=== PATIENT | female | born 1945 | race Caucasian/White ===

== ENCOUNTER 2023-04-12 17:09 | Inpatient (IN) | payer MEDICARE, MEDICAID ==
[~2023-04-12] VITALS: Ht 152.4 cm; Wt 83.7 kg
[~2023-04-12 17:09] MED LIST: AML5T GT; AML5T PO; ARFO15NE2 IN; DIGO0.2570 PO; FLUT250M2 INH; FURO40TA4 PO; GABA-1250 PO; IBUP-1456 PO; LISI20TA56 PO; LOS50T PO; METO-6 PO; NITR0.4S29 SL; OMEP20CA74 PO; POTA1TAB61 PO; SIMV-270 PO
[2023-04-12 17:42] LABS: Basophils # (auto) 0 10 ^3/uL (0-0.2); Basophils % (auto) 0.6 % (0.0-2.0); Eosinophils # (auto) 0.1 10 ^3/uL (0-0.8); Eosinophils % (auto) 2.3 % (0.0-7.0); Hematocrit 45.3 % (36.0-46.0); Hemoglobin 14.9 g/dL (12.2-16.2); Lymphocytes # (auto) 1.6 10 ^3/uL (0.4-5.4); Lymphocytes % (auto) 24.5 % (10.0-50.0); Mean Corpuscular Hemoglobin 30.3 pg (28.0-32.0); Mean Corpuscular Hgb Conc. 32.9 g/dL (32.0-36.0); Mean Corpuscular Volume 92.4 fL (80.0-100.0); Monocytes # (auto) 0.7 10 ^3/uL (0-1.3); Monocytes % (auto) 10.3 % (0.0-12.0); Neutrophils # (auto) 4.1 10 ^3/uL (1.6-8.6); Neutrophils % (auto) 62.3 % (37.0-80.0); Nucleated Red Blood Cells % 0.1 %; Red Cell Distribution Width 14.5 % (11.8-14.3); White Blood Cell 6.6 10^3/uL (4.4-10.8)
[2023-04-12 17:45] LABS: Chloride 105 mmol/L (98-107); Potassium 4.1 mmol/L (3.5-5.1); Sodium 143 mmol/L (136-145)
[2023-04-12 17:46] LABS: Anion Gap 5 (5-15); Calcium 9.9 mg/dL (8.5-10.1); Carbon Dioxide 33 mmol/L (20-30)
[2023-04-12 17:51] LABS: BUN/Creatinine Ratio 14.6 (10.0-20.0); Blood Urea Nitrogen 14 mg/dL (9-23); Glucose 91 mg/dL (74-106)
[2023-04-12] MEDS ORDERED: ONDANSETRON HCL 4 MG/2 ML VIAL IV ONE (18:15)
[2023-04-12] MEDS ORDERED: NITROGLYCERIN 0.4 MG SL TAB SL ONE (18:15)
[2023-04-12] MEDS ORDERED: MORPHINE SULFATE 4 MG/ML SYR/VIAL IV PRN (19:15)
[2023-04-12] MEDS ORDERED: NITROGLYCERIN 0.4 MG SL TAB SL PRN (19:15)
[2023-04-12] MEDS ORDERED: ONDANSETRON HCL 4 MG/2 ML VIAL IV PRN (19:15)
[2023-04-12] MEDS ORDERED: ACETAMINOPHEN 325 MG TAB PO PRN (19:15)
[2023-04-12] MEDS ORDERED: DEXTROSE (50%) 50ML SYRG IV PRN (19:45)
[2023-04-12 21:00] VITALS: PULSE 77
[2023-04-12] MEDS: METOPROLOL SUCCINATE XL 50 MG TAB PO SCH (21:17)
[2023-04-12] MEDS: ATORVASTATIN 20 MG TAB PO SCH (21:18)
[2023-04-12 21:30] LABS: Prothrombin Time 10.5 sec (9.3-11.8)
[2023-04-12] MEDS: ACCU-CHEK COMFORT CURVE STRIP VI SCH (21:47)
[2023-04-12] MEDS: InsuLIN REG 1unit/0.01ml Soln (100units/ml) SC SCH (21:47)
[2023-04-12] MEDS ORDERED: LOSARTAN POTASSIUM 50 MG TAB PO SCH (22:00)
[2023-04-12 23:54] LABS: Urine Epithelial Cast None Seen /hpf (<5)
[2023-04-13] VITALS (11 sets, daily range): BP systolic 113–156; BP diastolic 53–99; PULSE 60–64; RESP 11–20; TEMP 97.5–98.3; O2SAT 94–98
[2023-04-13 00:15] LABS: Urine Bacteria FEW /hpf (None Seen); Urine Blood Negative /uL (Negative); Urine Clarity HAZY (Clear); Urine Color Yellow (Yellow); Urine Protein, UAD Negative (Negative); Urine Specific Gravity 1.016 (1.001-1.035); Urine Urobilinogen Normal (Negative); Urine WBC 1 /hpf (0 - 5)
[2023-04-13] MEDS: FUROSEMIDE 40 MG TAB PO SCH ×2 (06:20→18:00)
[2023-04-13] MEDS: ACCU-CHEK COMFORT CURVE STRIP VI SCH ×4 (06:20→22:37)
[2023-04-13] MEDS: InsuLIN REG 1unit/0.01ml Soln (100units/ml) SC SCH ×4 (06:20→22:44)
[2023-04-13] MEDS ORDERED: EZET-10 PO (07:56)
[2023-04-13] MEDS ORDERED: MEMA28CA15 PO (07:56)
[2023-04-13] MEDS ORDERED: DONETAB6 PO (07:56)
[2023-04-13] MEDS ORDERED: RIVA1CAP PO (07:56)
[2023-04-13] MEDS: LISINOPRIL 20 MG TAB PO SCH (10:00)
[2023-04-13] MEDS: amLODIPine BESYLATE 5 MG TAB PO SCH (10:00)
[2023-04-13] MEDS ORDERED: MEMANTINE HCL 5 MG TAB PO ONE (10:15)
[2023-04-13] MEDS ORDERED: IBUPROFEN 800 MG TAB PO PRN ×2 (10:15→10:30)
[2023-04-13] MEDS: PANTOPRAZOLE 40 MG TAB PO SCH (11:10)
[2023-04-13] MEDS: DOCUSATE SOD 100 MG CAP PO SCH (11:11)
[2023-04-13] MEDS: GABAPENTIN 300 MG CAP PO SCH ×2 (11:18→22:36)
[2023-04-13] MEDS: METOPROLOL SUCCINATE XL 50 MG TAB PO SCH ×2 (11:19→22:35)
[2023-04-13] MEDS: DIGOXIN 0.25 MG TAB PO SCH (11:20)
[2023-04-13] MEDS ORDERED: VERAPAMIL 2.5MG/ML INJ 2ML VIAL IV ONE (18:48)
[2023-04-13] MEDS ORDERED: fentaNYL CITRATE 100 MCG/2 ML VL ONE (18:48)
[2023-04-13] MEDS ORDERED: HEPARIN SODIUM (PORCINE) 5000 UNITS/ML 1ML VIAL ONE (18:48)
[2023-04-13] MEDS ORDERED: ANGIOMAX 250 MG VIAL IV ONE (18:48)
[2023-04-13] MEDS ORDERED: LIDOCAINE 2%HCL (LOCAL ANESTH.) INJ 20ML MDV ONE (18:49)
[2023-04-13] MEDS ORDERED: MIDAZOLAM HCL 2MG/2ML 2ml VIAL (1mg/ml) ONE (18:49)
[2023-04-13] MEDS ORDERED: SODIUM CHL 0.9% 0 ML ONE (18:49)
[2023-04-13] MEDS ORDERED: IOHEXOL 350 MG/ML 100ML IJ ONE (18:49)
[2023-04-13] MEDS ORDERED: DONEPEZIL HYDROCHLORIDE 5 MG TAB PO SCH (22:00)
[2023-04-13] MEDS: ATORVASTATIN 20 MG TAB PO SCH (22:32)
[2023-04-13] MEDS: MEMANTINE HCL 5 MG TAB PO SCH (22:32)
[2023-04-14 05:00] VITALS: BP 149/77; PULSE 59; RESP 18; TEMP 97.8; O2SAT 93
[2023-04-14 05:19] LABS: Basophils # (auto) 0 10 ^3/uL (0-0.2); Basophils % (auto) 0.6 % (0.0-2.0); Eosinophils # (auto) 0.2 10 ^3/uL (0-0.8); Eosinophils % (auto) 2.5 % (0.0-7.0); Hematocrit 42.8 % (36.0-46.0); Hemoglobin 14.3 g/dL (12.2-16.2); Lymphocytes # (auto) 1.5 10 ^3/uL (0.4-5.4); Mean Corpuscular Hemoglobin 30.8 pg (28.0-32.0); Mean Corpuscular Hgb Conc. 33.4 g/dL (32.0-36.0); Monocytes # (auto) 0.7 10 ^3/uL (0-1.3); Monocytes % (auto) 10.8 % (0.0-12.0); Neutrophils % (auto) 63.1 % (37.0-80.0); Red Blood Cells 4.65 10^6/uL (4.0-5.20); Red Cell Distribution Width 14.3 % (11.8-14.3); White Blood Cell 6.3 10^3/uL (4.4-10.8)
[2023-04-14 05:27] LABS: Alanine Aminotransferase 15 U/L (7-40); Albumin 4.1 g/dL (3.2-4.8); Alkaline Phosphatase 69 U/L (46-116); Anion Gap 8 (5-15); Aspartate Aminotransferase 21 U/L (13-40); BUN/Creatinine Ratio 17.7 (10.0-20.0); Blood Urea Nitrogen 17 mg/dL (9-23); Calcium 9.4 mg/dL (8.7-10.4); Carbon Dioxide 27 mmol/L (20-30); Chloride 104 mmol/L (98-107); Glucose 104 mg/dL (74-106); Sodium 139 mmol/L (136-145)
[2023-04-14 05:28] LABS: Bilirubin, Total 0.5 mg/dL (0.2-1.0); Total Protein 6.4 g/dL (5.7-8.2)
[2023-04-14] MEDS: FUROSEMIDE 40 MG TAB PO SCH (05:40)
[2023-04-14] MEDS: GABAPENTIN 300 MG CAP PO SCH (05:40)
[2023-04-14] MEDS: InsuLIN REG 1unit/0.01ml Soln (100units/ml) SC SCH ×2 (05:50→11:30)
[2023-04-14] MEDS: ACCU-CHEK COMFORT CURVE STRIP VI SCH ×2 (05:50→11:30)
[2023-04-14 08:00] VITALS: BP 106/59; PULSE 60; RESP 16; TEMP 97.6; O2SAT 97
[2023-04-14] MEDS: DOCUSATE SOD 100 MG CAP PO SCH (08:32)
[2023-04-14] MEDS: PANTOPRAZOLE 40 MG TAB PO SCH (08:32)
[2023-04-14] MEDS: MEMANTINE HCL 5 MG TAB PO SCH (08:33)
[2023-04-14] MEDS: amLODIPine BESYLATE 5 MG TAB PO SCH (08:33)
[2023-04-14] MEDS: DIGOXIN 0.25 MG TAB PO SCH (08:33)
[2023-04-14] MEDS: METOPROLOL SUCCINATE XL 50 MG TAB PO SCH (08:34)
[2023-04-14] MEDS: LISINOPRIL 20 MG TAB PO SCH (08:34)
[2023-04-14 11:39] VITALS: BP 95/57; PULSE 60; TEMP 97.2
== END 2023-04-14 12:30 | disposition home or self-care (01) | DRG 287 ==
LOC: EDBD 17:09 → ER 17:09 → TELE 19:35 → TELE-CENTR 23:47
PROVIDERS: ADMIT Nurse Practitioner Family; ATTEND Internal Medicine
PROC: 4A023N7 Measurement of Cardiac Sampling and Pressure, Left Heart, Percutaneous Approach (ICD-10-PCS; principal; 2023-04-13)
PROC: B2111ZZ Fluoroscopy of Multiple Coronary Arteries using Low Osmolar Contrast (ICD-10-PCS; 2023-04-13)
PROC: B2151ZZ Fluoroscopy of Left Heart using Low Osmolar Contrast (ICD-10-PCS; 2023-04-13)
PROC: 4A033BC Measurement of Arterial Pressure, Coronary, Percutaneous Approach (ICD-10-PCS; 2023-04-13)
DX: I25.110 Atherosclerotic heart disease of native coronary artery with unstable angina pectoris (principal); J44.1 Chronic obstructive pulmonary disease with (acute) exacerbation; E11.65 Type 2 diabetes mellitus with hyperglycemia; E78.5 Hyperlipidemia, unspecified; F03.90 Unspecified dementia, unspecified severity, without behavioral disturbance, psychotic disturbance, mood disturbance, and anxiety; I10 Essential (primary) hypertension; E66.9 Obesity, unspecified; I25.2 Old myocardial infarction; Z88.5 Allergy status to narcotic agent; Z88.8 Allergy status to other drugs, medicaments and biological substances; Z86.73 Personal history of transient ischemic attack (TIA), and cerebral infarction without residual deficits; Z88.6 Allergy status to analgesic agent; Z95.0 Presence of cardiac pacemaker; Z82.49 Family history of ischemic heart disease and other diseases of the circulatory system; Z83.3 Family history of diabetes mellitus; Z68.36 Body mass index [BMI] 36.0-36.9, adult
CPT/HCPCS: 36415; 71045; 80048; 80053; 80162; 81001; 82607; 82962; 83735; 84443; 84484; 85025; 85610; 87081; 93005; 93306; 93458; 93571; 97163; 99152; G0378; J2250; J2405

== ENCOUNTER 2023-04-19 12:34 | Emergency (ER) | payer MEDICARE, MEDICAID ==
[~2023-04-19] VITALS: Ht 162.6 cm; Wt 68.0 kg
[~2023-04-19 12:34] MED LIST changes: +DONETAB6 PO; +EZET-10 PO; +MEMA28CA15 PO; +RIVA1CAP PO
[2023-04-19 13:58] LABS: Basophils # (auto) 0.1 10 ^3/uL (0-0.2); Basophils % (auto) 0.8 % (0.0-2.0); Eosinophils # (auto) 0.2 10 ^3/uL (0-0.8); Eosinophils % (auto) 2.5 % (0.0-7.0); Hematocrit 44.4 % (36.0-46.0); Hemoglobin 14.8 g/dL (12.2-16.2); Lymphocytes # (auto) 1.5 10 ^3/uL (0.4-5.4); Mean Corpuscular Hemoglobin 30.7 pg (28.0-32.0); Mean Corpuscular Hgb Conc. 33.2 g/dL (32.0-36.0); Mean Corpuscular Volume 92.3 fL (80.0-100.0); Monocytes # (auto) 0.6 10 ^3/uL (0-1.3); Monocytes % (auto) 9.2 % (0.0-12.0); Neutrophils # (auto) 4.3 10 ^3/uL (1.6-8.6); Neutrophils % (auto) 64.5 % (37.0-80.0); Nucleated Red Blood Cells % 0.1 %; Red Blood Cells 4.81 10^6/uL (4.0-5.20); Red Cell Distribution Width 14.2 % (11.8-14.3); White Blood Cell 6.7 10^3/uL (4.4-10.8)
[2023-04-19 14:30] LABS: Alanine Aminotransferase 20 U/L (7-40); Albumin 4.5 g/dL (3.2-4.8); Alkaline Phosphatase 75 U/L (46-116); Anion Gap 6 (5-15); Aspartate Aminotransferase 29 U/L (13-40); BUN/Creatinine Ratio 13.8 (10.0-20.0); Blood Urea Nitrogen 13 mg/dL (9-23); Calcium 9.6 mg/dL (8.5-10.1); Carbon Dioxide 27 mmol/L (20-30); Chloride 107 mmol/L (98-107); Glucose 95 mg/dL (74-106); Potassium 4.8 mmol/L (3.5-5.1); Sodium 140 mmol/L (136-145)
[2023-04-19 14:31] LABS: Bilirubin, Total 0.5 mg/dL (0.2-1.0); Total Protein 6.8 g/dL (5.7-8.2)
[2023-04-19 14:39] LABS: Urine Bacteria NONE SEEN /hpf (None Seen); Urine Blood Negative /uL (Negative); Urine Clarity Clear (Clear); Urine Color Yellow (Yellow); Urine Protein, UAD Negative (Negative); Urine Specific Gravity 1.012 (1.001-1.035); Urine Urobilinogen Normal (Negative); Urine WBC <1 /hpf (0 - 5)
[2023-04-19] MEDS ORDERED: SODIUM CHLORIDE 0.9% 1,000 ML IV ONE (15:15)
[2023-04-19] MEDS ORDERED: METOCLOPRAMIDE HCL 10 MG TAB PO ONE (16:00)
[2023-04-19] MEDS ORDERED: PANTOPRAZOLE 40 MG TAB PO ONE (16:00)
[2023-04-19 17:38] VITALS: BP 130/78; TEMP 98.6
[2023-04-19 17:39] VITALS: PULSE 80; RESP 16; O2SAT 95
== END 2023-04-19 18:51 | disposition home or self-care (01) ==
LOC: EDBD 12:34 → ER 12:34
DX: R07.89 Other chest pain (principal); K21.9 Gastro-esophageal reflux disease without esophagitis; I20.89 Other forms of angina pectoris; J44.9 Chronic obstructive pulmonary disease, unspecified; E11.9 Type 2 diabetes mellitus without complications; E78.5 Hyperlipidemia, unspecified; I10 Essential (primary) hypertension; G30.9 Alzheimer's disease, unspecified; F02.80 Dementia in other diseases classified elsewhere, unspecified severity, without behavioral disturbance, psychotic disturbance, mood disturbance, and anxiety; Z86.73 Personal history of transient ischemic attack (TIA), and cerebral infarction without residual deficits; Z88.1 Allergy status to other antibiotic agents
CPT/HCPCS: 36415; 71045; 80053; 80162; 81001; 83735; 84443; 84484; 85025; 93005; 96360; 96361; 99285; J7030

== ENCOUNTER 2024-04-08 14:05 | Inpatient (IN) | payer MEDICARE, MEDICAID ==
[~2024-04-08] VITALS: Ht 154.9 cm; Wt 76.6 kg
[~2024-04-08 14:05] MED LIST changes: +POTA-215 PO; -POTA1TAB61 PO
--- NOTE | 2024-04-08 14:23 | ECG ---
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
[2024-04-08 14:49] LABS: Basophils # (auto) 0 10 ^3/uL (0-0.2); Basophils % (auto) 0.8 % (0.0-2.0); Eosinophils # (auto) 0.2 10 ^3/uL (0-0.8); Eosinophils % (auto) 3.4 % (0.0-7.0); Hematocrit 45.3 % (36.0-46.0); Hemoglobin 14.9 g/dL (12.2-16.2); Lymphocytes # (auto) 1.4 10 ^3/uL (0.4-5.4); Lymphocytes % (auto) 31.1 % (10.0-50.0); Mean Corpuscular Hemoglobin 30.1 pg (28.0-32.0); Mean Corpuscular Hgb Conc. 32.9 g/dL (32.0-36.0); Mean Corpuscular Volume 91.5 fL (80.0-100.0); Monocytes # (auto) 0.3 10 ^3/uL (0-1.3); Monocytes % (auto) 7.6 % (0.0-12.0); Neutrophils # (auto) 2.6 10 ^3/uL (1.6-8.6); Neutrophils % (auto) 57.1 % (37.0-80.0); Nucleated Red Blood Cells % 0.1 %; Platelet Count (auto) 140 10^3/uL (140-450); Red Blood Cells 4.95 10^6/uL (4.0-5.20); Red Cell Distribution Width 14.4 % (11.8-14.3); White Blood Cell 4.6 10^3/uL (4.4-10.8)
[2024-04-08 14:58] LABS: Chloride 106 mmol/L (98-107); Potassium 4.2 mmol/L (3.5-5.1); Sodium 141 mmol/L (136-145)
[2024-04-08 14:59] LABS: Anion Gap 6 (5-15); Carbon Dioxide 29 mmol/L (20-31)
[2024-04-08 15:05] LABS: BUN/Creatinine Ratio 12.6 (10.0-20.0); Blood Urea Nitrogen 14 mg/dL (9-23)
[2024-04-08 15:06] LABS: Glucose 146 mg/dL (74-106)
--- NOTE | 2024-04-08 15:08 | ED.PDOC ---
History of Present Illness HPI Comments 79 Y F BIBA with PMHX of dementia presents to the ED with CC of generalized weakness. Per EMS, patient was at store with daughter when patient went to sit down on chair with no chair around her. Per EMS, patient's daughter states that patient is "off more than usual". Patient unable to provide any other current symptoms or medical history; patient is A&Ox2. Chief Complaint: General Weakness Time Seen by MD: 14:10 Primary Care Provider: UNKNOWN Reviewed Notes: Nurses Notes, Stained Glass Glazier Helper Notes, Medications, Allergies Allergies: Coded Allergies: Aspirin (Verified Allergy, Unknown, 04/12/23) Fentanyl (Verified Allergy, Unknown, 04/12/23) Gatifloxacin (Verified Allergy, Unknown, 04/12/23) Levofloxacin (Verified Allergy, Unknown, 04/12/23) No Known Drug Allergy (Verified Allergy, Unknown, 10/18/15) Oxycodone (Verified Allergy, Unknown, 04/12/23) Uncoded Allergies: ADHESIVE (Allergy, Unknown, 04/13/23) DEMEROL (Allergy, Unknown, 04/12/23) Home Meds Reported Medications Memantine HCl (Memantine Hydrochloride E) 28 Mg Cap, 28 MG PO, CAP 04/13/23 Donepezil Hydrochloride (DONEPEZIL HCL) 10 Mg Tab, 10 MG PO DAILY, TAB 04/13/23 Ezetimibe (Ezetimibe) 10 Mg Tab, 10 MG PO DAILY, TAB 04/13/23 Rivastigmine Tartrate (Rivastigmine Tartrate) 1.5 Mg Cap, 1.5 MG PO BID, CAP 04/13/23 Losartan Potassium (COZAAR TABLET) 50 Mg Tb, 25 MG PO BID 10/18/15 Amlodipine Besylate (NORVASC TABLET) 5 Mg Tb, 5 MG PO DAILY 10/18/15 Amlodipine Besylate (NORVASC TABLET) 5 Mg Tb, 5 MG GT 10/18/15 Nitroglycerin (NTROSTAT SUBLINGUAL) 0.4 Mg Sl, 0.4 MG SL PRN *MAY REPEAT EVERY 5 MINUTES X 3 TOTAL IF NO RELIEF, INITIATE ANALGESIC THERAPY. NOTIFY PHYSICIAN *Do not crush. 10/18/15 Arformoterol Tartrate (Brovana) 15 Mcg Neb, 15 MCG IN BID 10/18/15 Fluticasone-Salmeterol (Advair Diskus 250/50) 1 Puff Ih, 1 PUFF INH BID, #3 INHALER 3 Refills 10/18/15 Omeprazole (PRILOSEC) 20 Mg Cap, 20 MG PO DAILY, CAP 10/18/15 Simvastatin (Zocor) 20 Mg Tab, 20 MG PO HS, #30 MG 0 Refills 10/18/15 Gabapentin (Gabapentin) 300 Mg Cap, 300 MG PO TID, CAP 10/18/15 Metoprolol Succinate (Toprol Xl) 50 Mg Tab, 50 MG PO BID, TAB 10/18/15 Lisinopril (Lisinopril) 20 Mg Tab, 20 MG PO DAILY, TAB 10/18/15 Potassium Chloride (Klor-Con M10) 10 Meq Tab, 8 MEQ PO, TAB 10/18/15 Furosemide (Furosemide) 40 Mg Tab, 40 MG PO BIDD for 30 Days, MG 10/18/15 Ibuprofen (Ibuprofen) 800 Mg Tab, 800 MG PO BID, MG 10/18/15 Digoxin (Digoxin) 0.25 Mg Tab, 0.25 MG PO DAILY for 30 Days, MG 10/18/15 Information Source: Patient, Emergency Med Personnel Mode of Arrival: EMS Severity: Mild Timing: Hours Duration: Since onset Prehospital treatment: None Past Medical History PAST MEDICAL HISTORY: COPD, Dementia, DM, High Lipids, HTN, AL, TIA Surgical History: Pacemaker ROBOTIC WELDER History: No Pertinent ROBOTIC WELDER History Family History Family History: Unknown Social History Smoker: Non-Smoker Alcohol: Rarely Drugs: Denies Drug Use Lives In: Home Constitutional: reports: weakness; denies: chills, diaphoresis, fatigue, fever, malaise, sweats, others EENTM: denies: blurred vision, double vision, ear bleeding, ear discharge, ear drainage, ear pain, ear ringing, eye pain, eye redness, hearing loss, mouth pain, mouth swelling, nasal discharge, nose bleeding, nose congestion, nose pain, photophobia, tearing, throat pain, throat swelling, voice changes, others Respiratory: denies: cough, hemoptysis, orthopnea, SOB at rest, shortness of breath, SOB with excertion, stridor, wheezing, others Cardiovascular: denies: chest pain, dizzy spells, diaphoresis, Dyspnea on exertion, edema, irregular heart beat, left arm pain, lightheadedness, palpitations, PND, syncope, others Gastrointestinal: denies: abdomen distended, abdominal pain, blood streaked bowels, constipated, diarrhea, dysphagia, difficulty swallowing, hematemesis, melena, nausea, poor appetite, poor fluid intake, rectal bleeding, rectal pain, vomiting, others Genitourinary: denies: abnormal vagina bleeding, burning, dyspareunia, dysuria, flank pain, frequency, hematuria, incontinence, pain, , vagina discharge, urgency, others Neurological: denies: dizziness, fainting, headache, left sided numbness, left sided weakness, numbness, paresthesia, pre-existing deficit, right sided numbness, right sided weakness, seizure, speech problems, tingling, tremors, weakness, others Musculoskeletal: denies: back pain, gout, joint pain, joint swelling, muscle pain, muscle stiffness, neck pain, others Integumetry: denies: bruises, change in color, change in hair/nails, dryness, laceration, lesions, lumps, rash, wounds, others Allergic/Immunocompromised: denies: Difficulty Healing, Frequent Infections, Hives, Itching, others Hematologic/Lymphatic: denies: anemia, blood clots, easy bleeding, easy bruising, swollen glands, others Endocrine: denies: excessive hunger, excessive sweating, excessive thirst, excessive urination, flushing, intolerance to cold, intolerance to heat, unexplained weight gain, unexplained weight loss, others Psychiatric: denies: anxiety, bipolar disorder, depression, hopeless, panic disorder, schizophrenia, sleepless, suicidal, others Unable to Obtain due to: Dementia All Other Systems: Reviewed and Negative Physical Exam General Appearance: Moderate Distress, Normal HEENT: Normal ENT Inspection, Pharynx Normal, TMs Normal Neck: Full Range of Motion, Non-Tender, Normal, Normal Inspection Respiratory: Chest Non-Tender, Lungs Clear, No Accessory Muscle Use, No Respiratory Distress, Normal Breath Sounds Cardiovascular: No Edema, No JVD, No Murmur, No Gallop, Normal Peripheral Pulses, Regular Rate/Rhythm Breast Exam: Deferred Gastrointestinal: No Organomegaly, Non Tender, No Pulsatile Mass, Normal Bowel Sounds, Soft Genitalia: Deferred Pelvic: Deferred Rectal: Deferred Extremities: No calf tenderness, Normal capillary refill, Normal inspection, Normal range of motion, Non-tender, No pedal edema Musculoskeletal : Apperance: Normal Neurologic: Alert, commercial insurance underwriter II-XII nml as Tested, No Motor Deficits, Normal Affect, Normal Mood, No Sensory Deficits Cerebellar Function: NOT DONE Reflexes: NOT DONE Skin: Dry, Normal Color, Warm Peripheral Pulses: 3+ Radial (R), 3+ Radial (L) Lymphatic: No Adenopathy Was a procedure done? Was a procedure done?: No Differential Dx Considerations may include: TIA Electrolyte imbalance X-Ray, Labs, Meds, VS Vital Signs Date Time Temp Pulse Resp B/P (MAP) Pulse Ox O2 Delivery O2 Flow Rate FiO2 04/08/24 14:10 60 04/08/24 14:09 98.3 62 16 128/80 (96) 95 Lab Test 04/08/24 14:27 Range/Units White Blood Count 4.6 4.4-10.8 10^3/uL Red Blood Count 4.95 4.0-5.20 10^6/uL Hemoglobin 14.9 12.2-16.2 g/dL Hematocrit 45.3 36.0-46.0 % Mean Corpuscular Volume 91.5 80.0-100.0 fL Mean Corpuscular Hemoglobin 30.1 28.0-32.0 pg Mean Corpuscular Hemoglobin Concent 32.9 32.0-36.0 g/dL Red Cell Distribution Width 14.4 H 11.8-14.3 % Platelet Count 140 140-450 10^3/uL Mean Platelet Volume 8.9 6.9-10.8 fL Neutrophils (%) (Auto) 57.1 37.0-80.0 % Lymphocytes (%) (Auto) 31.1 10.0-50.0 % Monocytes (%) (Auto) 7.6 0.0-12.0 % Eosinophils (%) (Auto) 3.4 0.0-7.0 % Basophils (%) (Auto) 0.8 0.0-2.0 % Neutrophils # (Auto) 2.6 1.6-8.6 10 ^3/uL Lymphocytes # (Auto) 1.4 0.4-5.4 10 ^3/uL Monocytes # (Auto) 0.3 0-1.3 10 ^3/uL Eosinophils # (Auto) 0.2 0-0.8 10 ^3/uL Basophils # (Auto) 0 0-0.2 10 ^3/uL Nucleated Red Blood Cells 0.1 % Sodium Level 141 136-145 mmol/L Potassium Level 4.2 3.5-5.1 mmol/L Chloride Level 106 98-107 mmol/L Carbon Dioxide Level 29 20-31 mmol/L Anion Gap 6 5-15 Blood Urea Nitrogen 14 9-23 mg/dL Creatinine 1.11 H 0.550-1.02 mg/dL Glomerular Filtration Rate Calc 51 >90 mL/min BUN/Creatinine Ratio 12.6 10.0-20.0 Serum Glucose 146 H 74-106 mg/dL Calcium Level 10.0 8.7-10.4 mg/dL Patient history of dementia. Appropriate. No sign of any trauma. Blood sugar slightly elevated. Establish intravenous access. Was given fluids. Moving all extremities. WBC within normal limits. Hemoglobin within normal limits. She does have pacemaker. Possible TIA. Explained to the family. Continue cardiac monitoring. Family states that she has been acting different today than normal. Not her usual self. Time of 1ST Reevaluation: 14:40 Reevaluation 1ST: Unchanged Patient Education/Counseling: Diagnosis, Treatment Family Education/Counseling: No Family Present Departure 1 Departure Time of Disposition: 15:14 Impression: Primary Impression: Alzheimer disease Additional Impressions: Uncontrolled diabetes mellitus Qualified Codes: E13.65 - Other specified diabetes mellitus with hy perglycemia TIA (transient ischemic attack) Disposition: ADMITTED INPATIENT Admit to: Med Surg Condition: Guarded Critical Care Note Critical Care Time?: No Stability Stability form required: No Heart Score Heart Score: Heart Score Response (Comments) Value History Slightly Suspicious 0 EKG Normal 0 Age >65 2 Risk Factors >3 or Hx ASHD 2 Troponin Normal limit 0 Total 4 I personally scribed for KLAUS NARVAEZ MD ([email or web address]) on 04/08/24 at 15:08. Electronically submitted by Leonor Hernandez ([email or web address]). KLAUS NARVAEZ MD Apr 08, 2024 15:08
--- NOTE | 2024-04-08 15:42 | DVH ---
CT HEAD WITHOUT CONTRAST INDICATION: altered EXAM DATE: 04/08/2024 03:18 PM COMPARISON: None RADIATION DOSE: CTDIvol: 50 mGy, DLP: 798 mGy*cm PROCEDURE: CT scans of the head were obtained from the vertex to the skull base. Sagittal and coronal reconstructions were provided. All CT scans at this medical facility are performed using dose modulation techniques as appropriate t o a performed exam including the following: Automated exposure control was utilized; adjustment of th e MA and/or KV according to patient size; and use of iterative reconstruction technique. FINDINGS: There is sulcal and ventricular prominence. The brain otherwise shows normal morphology a nd bernard-white matter differentiation, without intracranial hemorrhage, extra-axial fluid collection, mass effect or acute large vessel infarct.The basal cisterns are patent. The skull and visible facial bones are intact. The paranasal sinuses, mastoid air cells and middle ear cavities are well-aerated. The soft tissues of the scalp are unremarkable. IMPRESSION: No acute intracranial abnormality.
[2024-04-08 16:55] LABS: Urine Bacteria None Seen /hpf (None Seen)
[2024-04-08 17:07] LABS: Urine Blood Negative /uL (Negative); Urine Clarity Turbid (Clear); Urine Color Yellow (Yellow); Urine Hyaline Cast MOD /lpf (0 - 2); Urine Mucus FEW (None Seen); Urine Protein, UAD 1+ (Negative); Urine Specific Gravity 1.028 (1.001-1.035); Urine Squamous Epithelial Cell MOD /hpf (<5); Urine Urobilinogen Normal (Negative); Urine WBC 2 /hpf (0 - 5)
[2024-04-08 20:55] VITALS: PULSE 82; RESP 17; O2SAT 94
--- NOTE | 2024-04-08 21:52 | DVHHPRES ---
History of Present Illness Resident Creating Document: JUAN RODRIGUEZ RESIDENT History of Present Illness Patient is 79-year-old female with past medical history of dementia and hypertension who blood to the hospital by ambulance for possible syncopal episode. As per family members, patient was trying to set on chair with daljit ginary chair, patient was acting of than usual and patient started rolling her eyes up not reacting to questions and then within four or 5 minutes she came back to normal. That prompted to visit hospital for further evaluation. Otherwise patient is alert oriented to time and place, denying any other symptoms including chest pain, shortness of breath, any other symptoms. Patient is poor historian, major DD of the history taken from daughter and EMS. No any other complaints. Past Medical History Hypertension, dementia Family History: None Smoke: No ALCOHOL: none Drugs: None Lives: with Family Review of Systems Review of Systems Eyes: No Pain, No Vision change, No Conjunctivae inflammation, No Eyelid inflammation, No Other, No Redness ENT: No Ear pain, No Ear discharge, No Nose pain, No Nose discharge, No Nose congestion, No Mouth pain, No Mouth swelling, No Throat pain, No Throat swelling, No Other Cardiovascular: No Chest Pain, No Palpitations, No Orthopnea, No Paroxysmal Noc. Dyspnea, No Edema, No Lt Headedness, No Other Respiratory: No Cough, No Dry, No Shortness of breath, No SOB with excertion, No Wheezing, No Hemoptysis, No Pleuritic Pain, No Sputum, No Other Gastrointestinal: No Nausea, No Vomiting, No Abdominal Pain, No Diarrhea, No Constipation, No Melena, No Hematochezia, No Other Genitourinary: No Dysuria, No Frequency, No Incontinence, No Hematuria, No Retention, No Other Musculoskeletal: No other, No neck pain, No shoulder pain, No arm pain, No back pain, No hand pain, No leg pain, No foot pain Skin: No Rash, No Lesions, No Jaundice, No Bruising, No Other Allergies: Coded Allergies: Aspirin (Verified Allergy, Unknown, 04/12/23) Fentanyl (Verified Allergy, Unknown, 04/12/23) Gatifloxacin (Verified Allergy, Unknown, 04/12/23) Levofloxacin (Verified Allergy, Unknown, 04/12/23) No Known Drug Allergy (Verified Allergy, Unknown, 10/18/15) Oxycodone (Verified Allergy, Unknown, 04/12/23) Uncoded Allergies: ADHESIVE (Allergy, Unknown, 04/13/23) DEMEROL (Allergy, Unknown, 04/12/23) Exam Vital Signs Vital Signs Date Time Temp Pulse Resp B/P (MAP) Pulse Ox O2 Delivery O2 Flow Rate FiO2 04/08/24 20:55 82 17 94 Room Air* 0 21 04/08/24 20:53 98.1 156/116 (129) 98.1 General Appearance: Alert, No acute distress HEENT: Atraumatic, PERRLA Respiratory: Normal air movement Cardiovascular: Regular rate, Normal S1, Normal S2 Abdominal: Soft, No tenderness Extremities: No edema Skin: No rashes, No breakdown Neuro: Normal gait, Strength at 5/5 X4 ext, Normal tone Psych/Mental Status: Mood NL Labs/Xrays Labs Test 04/08/24 16:54 04/08/24 14:27 Range/Units Urine Color Yellow Yellow Urine Clarity Turbid H Clear Urine pH 6.0 5.0-9.0 Urine Specific [place] 1.028 1.001-1.035 Urine Protein 1+ H Negative Urine Ketones Negative Negative Urine Blood Negative Negative /uL Urine Nitrite Negative Negative Urine Bilirubin Negative Negative Urine Urobilinogen Normal Negative mg/dL Urine Leukocyte Esterase Negative Negative /uL Urine RBC 3 0 - 4 /hpf Urine WBC 2 0 - 5 /hpf Urine Squamous Epithelial Cells Mod <5 /hpf Urine Bacteria None seen None Seen /hpf Urine Hyaline Casts Mod 0 - 2 /lpf Urine Mucus Few None Seen Urine Glucose Trace Normal mg/dL White Blood Count 4.6 4.4-10.8 10^3/uL Red Blood Count 4.95 4.0-5.20 10^6/uL Hemoglobin 14.9 12.2-16.2 g/dL Hematocrit 45.3 36.0-46.0 % Mean Corpuscular Volume 91.5 80.0-100.0 fL Mean Corpuscular Hemoglobin 30.1 28.0-32.0 pg Mean Corpuscular Hemoglobin Concent 32.9 32.0-36.0 g/dL Red Cell Distribution Width 14.4 H 11.8-14.3 % Platelet Count 140 140-450 10^3/uL Mean Platelet Volume 8.9 6.9-10.8 fL Neutrophils (%) (Auto) 57.1 37.0-80.0 % Lymphocytes (%) (Auto) 31.1 10.0-50.0 % Monocytes (%) (Auto) 7.6 0.0-12.0 % Eosinophils (%) (Auto) 3.4 0.0-7.0 % Basophils (%) (Auto) 0.8 0.0-2.0 % Neutrophils # (Auto) 2.6 1.6-8.6 10 ^3/uL Lymphocytes # (Auto) 1.4 0.4-5.4 10 ^3/uL Monocytes # (Auto) 0.3 0-1.3 10 ^3/uL Eosinophils # (Auto) 0.2 0-0.8 10 ^3/uL Basophils # (Auto) 0 0-0.2 10 ^3/uL Nucleated Red Blood Cells 0.1 % Sodium Level 141 136-145 mmol/L Potassium Level 4.2 3.5-5.1 mmol/L Chloride Level 106 98-107 mmol/L Carbon Dioxide Level 29 20-31 mmol/L Anion Gap 6 5-15 Blood Urea Nitrogen 14 9-23 mg/dL Creatinine 1.11 H 0.550-1.02 mg/dL Glomerular Filtration Rate Calc 51 >90 mL/min BUN/Creatinine Ratio 12.6 10.0-20.0 Serum Glucose 146 H 74-106 mg/dL Calcium Level 10.0 8.7-10.4 mg/dL Troponin I High Sensitivity < 3 L </=34 ng/L Assessment/Plan Assessment/Plan Syncope, rule out etiology including orthostatic hypotension, tachy-estefany arrhythmias, TIA. Possible TIA Dementia History of hypertension plan/ recommendation -evaluate for possible cause of syncope. Likely TIA. CT scan of head showed no acute intracranial abnormality. -chest x-ray: No intrathoracic acute abnormality. -follow with orthostatic hypotension, carotid study, echocardiogram. -pending studies including TSH, vitamin B12 and folic acid. -did not started antihypertensive medication given patient is not hypotensive. -donepezil and memantine for dementia. -insomnia: Started home medication Restoril 50 mg p.o. every evening. Plan discussed with Dr. Soliman Plan discussed with: Daughter My Orders Orders - JUAN RODRIGUEZ RESIDENT Procedure Category Date Status Time Admit ADMIT 04/08/24 Transmitted 21:47 Nitroglycerin PHA 04/08/24 Transmitted Sublingual (Ntrostat 22:00 Morphine Sulfate PHA 04/08/24 Transmitted Injection 22:00 Oxygen By Nasal RT 04/08/24 Transmitted Cannula 21:47 Stat Ekg For Chest PACHECO 04/08/24 In Process Pain 21:47 Notify Of Changes PACHECO 04/08/24 In Process From Base 21:47 Forest [employer] Instructor For [facility] 04/08/24 In Process 24 Hours 21:47 Emergency Dysrhythmia PACHECO 04/08/24 In Process Protocol 21:47 Rhythm Strips Once PACHECO 04/08/24 In Process Every Shift 21:47 Amlodipine Tablet PHA 04/08/24 Transmitted (Norvasc Tablet) 22:00 Amlodipine Tablet PHA 04/09/24 Transmitted (Norvasc Tablet) 10:00 Donepezil Tablet PHA 04/08/24 Transmitted (Aricept Tablet) 22:00 Memantine Tablet PHA 04/09/24 Transmitted (Namenda Tablet) 10:00 Memantine Tablet PHA 04/08/24 Transmitted (Namenda Tablet) 22:00 Pantoprazole Tablet PHA 04/08/24 Transmitted (Protonix Tablet) 22:00 Pantoprazole Tablet PHA 04/09/24 Transmitted (Protonix Tablet) 06:00 Atorvastatin (Lipitor) PHA 04/08/24 Transmitted 22:00 Temazepam (Restoril) PHA 04/08/24 Transmitted 22:00 Temazepam (Restoril) PHA 04/08/24 Transmitted 22:00 Carotid Duplx W Color US 04/08/24 Logged DOP 21:47 Orthostatic Vital ORDERS 04/08/24 Transmitted Signs 21:47 Chest Portable XY 04/08/24 Logged 21:47 Date of Service: Apr 08, 2024 Billing Provider: DEQUAN SOLIMAN MD Common Visit Codes: [id number] INP/OBS CARE (HIGH) Secondary Visit Codes: [id number] CARE PLAN 30 MINUTES JUAN RODRIGUEZ RESIDENT Apr 08, 2024 21:52 DEQUAN SOLIMAN MD Apr 09, 2024 18:47
[2024-04-08] MEDS: ATORVASTATIN 20 MG TAB PO SCH (22:00)
[2024-04-08] MEDS ORDERED: NITROGLYCERIN 0.4 MG SL TAB SL PRN (22:00)
[2024-04-08] MEDS ORDERED: MORPHINE SULFATE INJ 2 MG/ml SYRG IV PRN (22:00)
[2024-04-08] MEDS ORDERED: TEMAZEPAM 15 MG CAP PO PRN (22:00)
[2024-04-08] MEDS: PANTOPRAZOLE 40 MG TAB PO ONE (22:19)
[2024-04-08] MEDS: amLODIPine BESYLATE 5 MG TAB PO ONE (22:19)
[2024-04-08] MEDS: TEMAZEPAM 15 MG CAP PO ONE (22:19)
[2024-04-08] MEDS: MEMANTINE HCL 5 MG TAB PO ONE (22:19)
[2024-04-08] MEDS: DONEPEZIL HYDROCHLORIDE 5 MG TAB PO SCH (22:20)
--- NOTE | 2024-04-08 22:31 | DVH ---
Carotid Duplex Clinical History: syncope Comparison: None Technique: Duplex Doppler evaluation of the extracranial carotid and vertebral arteries including col or Doppler and spectral/pulsed waveform analysis was performed. Findings: RIGHT SIDE: The peak systolic velocities are 88 cm/s in the distal CCA, 88 cm/s in the proximal ICA. The ICA/CCA ratio is 0.7. The external carotid artery is patent with peak systolic velocity of 105 cm/s proximally. There is appropriate antegrade flow in the right vertebral artery. LEFT SIDE: The peak systolic velocities are 67 cm/s in the distal CCA, 70 cm/s in the proximal ICA. The ICA/CCA ratio is 1.0. The external carotid artery is patent with peak systolic velocity of 64 cm/s proximally. There is appropriate antegrade flow in the left vertebral artery. IMPRESSION: No hemodynamically significant stenosis noted in the right carotid system. No hemodynamically significant stenosis noted in the left carotid system. Reference: Radiology 2003; 229:340-346 Normal ICA PSV is <125 cm/sec and no plaque or intimal thickening is visible sonographically additional criteria include ICA/CCA PSV ratio <0 and ICA EDV <40 cm/sec <50% ICA stenosis ICA PSV is <125 cm/sec and plaque or intimal thickening is visible sonographically additional criteria include ICA/CCA PSV ratio <0 and ICA EDV <40 cm/sec 50-69% ICA stenosis ICA PSV is 125-230 cm/sec and plaque is visible sonographically additional criteria include ICA/CCA PSV ratio of0-4.0 and ICA EDV of 40-100 cm/sec 70% ICA stenosis but less than near occlusion ICA PSV is >230 cm/sec and visible plaque and luminal narrowing are seen at bernard-scale and color Dopp ler ultrasound (the higher the Doppler parameters lie above the threshold of 230 cm/sec, the greater the likelihood of severe disease) additional criteria include ICA/CCA PSV ratio >4 and ICA EDV >100 cm/sec
--- NOTE | 2024-04-08 23:11 | DVH ---
CHEST RADIOGRAPH Indication: syncope Technique: Single frontal view of the chest was obtained Comparison: XY CHEST PORTABLE on DOS: 04/19/23, XY CHEST PORTABLE on DOS: 04/12/23 FINDINGS: Lines and Tubes: Due in anterior fusion lower cervical spine. Dual-chamber pacemaker in place with p ulse generator over the left chest. Lungs: No focal consolidation. Pleura: No effusion. No pneumothorax. Cardiomediastinal contours: Unremarkable Bones: No acute osseous abnormality. IMPRESSION: 1. No acute cardiopulmonary disease. 2. No significant change from April 12, 2023
[2024-04-08] MEDS: HALOPERIDOL 1 MG TAB PO ONE (23:31)
[2024-04-09] MEDS: PANTOPRAZOLE 40 MG TAB PO SCH (06:00)
[2024-04-09 07:59] VITALS: RESP 16; O2SAT 92
[2024-04-09] MEDS: MEMANTINE HCL 5 MG TAB PO SCH (10:23)
[2024-04-09] MEDS: amLODIPine BESYLATE 5 MG TAB PO SCH (10:24)
--- NOTE | 2024-04-09 13:10 | DVHPN2 ---
Reviewed: Care Plan, H&P, Labs, Medications, Previous Orders, Radiology Changes from previous H/P or p: No Changes Objective Vitals Vital Signs Date Time Temp Pulse Resp B/P (MAP) Pulse Ox O2 Delivery O2 Flow Rate FiO2 04/09/24 10:24 134/83 04/09/24 07:59 16 92 Room Air* 0 21 04/09/24 07:59 98.3 75 98.3 Medications Current Medications Medications Dose Ordered Sig/Victorina Route Start Time Stop Time Status Last Admin Dose Admin Nitroglycerin 0.4 mg Q5MINP PRN SL 04/08/24 22:00 Morphine Sulfate 2 mg Q30M PRN IV 04/08/24 22:00 Amlodipine Besylate 5 mg DAILY PO 04/09/24 10:00 04/09/24 10:24 5 MG Donepezil HCl 10 mg HS PO 04/08/24 22:00 04/08/24 22:20 10 MG Memantine 10 mg DAILY PO 04/09/24 10:00 04/09/24 10:23 10 MG Pantoprazole Sodium 40 mg DAILY@0600 PO 04/09/24 06:00 Atorvastatin Calcium 20 mg HS PO 04/08/24 22:00 Temazepam 15 mg HSPRN PRN PO 04/08/24 22:00 Haloperidol Lactate 2.5 mg Q4HPRN PRN IM 04/09/24 11:15 UNV Laboratory Results Laboratory Tests 04/08/24 14:27 Chemistry Test 04/08/24 14:27 Calcium Level 10.0 mg/dL (8.7-10.4) Urinalysis Test 04/08/24 16:54 Urine Color Yellow (Yellow) Urine Clarity Turbid (Clear) H Urine pH 6.0 (5.0-9.0) Urine Specific [place] 1.028 (1.001-1.035) Urine Protein 1+ (Negative) H Urine Ketones Negative (Negative) Urine Blood Negative /uL (Negative) Urine Nitrite Negative (Negative) Urine Bilirubin Negative (Negative) Urine Urobilinogen Normal mg/dL (Negative) Urine Leukocyte Esterase Negative /uL (Negative) Urine RBC 3 /hpf (0 - 4) Urine WBC 2 /hpf (0 - 5) Urine Squamous Epithelial Cells Mod /hpf (<5) Urine Bacteria None seen /hpf (None Seen) Urine Hyaline Casts Mod /lpf (0 - 2) Urine Mucus Few (None Seen) Urine Glucose Trace mg/dL (Normal) Labs and/or images reviewed: Labs reviewed by me, Image(s) reviewed by me Assessment/Plan Assessment/Plan Syncope, rule out etiology including orthostatic hypotension, tachy-estefany arrhythmias, TIA. Cardiology consult, Neurology consult Possible TIA Dementia History of hypertension Advanced care planning time 20 minutes Patient is full code Time Spent 55 minutes Plan discussed with: Patient My Orders Orders - DEJON WILDER MD Procedure Category Date Status Time Haloperidol Lactate PHA 04/09/24 Logged Injection (Haldol) 11:15 Blood Alcohol LAB 04/09/24 Logged 13:06 Drug Screen LAB 04/09/24 Logged 13:06 * Neurology Consult CONS 04/09/24 Transmitted 13:06 Date of Service: Apr 09, 2024 Billing Provider: DEJON WILDER MD Common Visit Codes: [id number] INP/OBS CARE(HIGH) Secondary Visit Codes: [id number] CARE PLAN 30 MINUTES DEJON WILDER MD Apr 09, 2024 13:10
[2024-04-09 14:38] LABS: Folate (Folic Acid) 12.14 ng/mL (>5.38)
[2024-04-09] MEDS: HALOPERIDOL LACTATE 5 MG/ML INJ VIAL IM PRN (16:56)
--- NOTE | 2024-04-09 17:04 | DVHSR ---
APPROVED REPORT EXAM: Two-dimensional and M-mode echocardiogram with Doppler and color Doppler. Blood Pressure: 134/83 mmHg INDICATION Syncope RISK FACTORS Height: 67, Weight: 178 DIMENSIONS LVDd3.8 (3.8-5.7cm)LA (2D)4.0 (1.9-4.0cm)Aortic Root3.1 (2.0-3.7cm) LVDs2.6 (2.5-4.0cm)LA (MM) (1.9-4.0cm)Aortic Cusp Exc1.4 (1.5-2.0cm) EF (%) 60.0 (55-70%)Rt. Atrium4.3 (1.9-4.0cm)Asc. Aorta cm Mitral Valve MitralMitral Stenosis E wave0.74m/sMV Mean GR.mmHg A wave1.11m/sMV Peak GR.54mmHg E/A ratio0.72D MVAcm2 DECEL [id number] 1/2 Tinn49pr IVRTmsDop MVA2.82cm2 Aortic Valve Aortic ValveAortic Stenosis V11.50m/[place] Mean GR.5mmHg V21.70m/[place] Peak GR.12mmHg LVOT Diameter1.8 (1.8-2.4cm)Doppler AVA2.24cm2 Tricuspid Valve TR Velocity2.54m/s [id number] Conclusion lvef 55% by visual estimate RV enlarged biatrial enlargement pacing lead in RV
[2024-04-09 21:50] VITALS: BP 147/76; PULSE 81; RESP 17; RESP 18; TEMP 97.5; O2SAT 92
[2024-04-09 22:50] VITALS: BP 147/76; RESP 18; TEMP 97.5
[2024-04-09 22:55] VITALS: BP 147/76; PULSE 81; RESP 17; RESP 18; TEMP 97.5; O2SAT 92
--- NOTE | 2024-04-09 22:58 | DVHINCON2 ---
Date of service: Apr 09, 2024 Referring Physician Louis Reason for Consultation Syncope History of Present Illness This is a 79 year old female with a PMH of COPD, Dementia, DM, High Lipids, HTN, MO, TIA brought in by EMS with complaints of generalized weakness. Per EMS, patient was at store with daughter when patient went to sit down on chair with no chair around her. Per EMS, patient's daughter states that patient is "off more than usual". Patient unable to provide any other current symptoms or medical history; patient is A&Ox2. WBC within normal limits. Hemoglobin within normal limits. EKG shows atrial-paced rhythm at 60. CT brain shows no acute intracranial abnormality. Carotid Duplex showed no hemodynamically significant stenosis noted in the right or left carotid system. Chest x-ray shows NAD. Patient was admitted to the hospital. I am asked to consult on this patient. Family History: Diabetes during Diabetes mellitus G8 MOTHER G8 FATHER Family history: Diabetes mellitus G8 MOTHER Family history: Hypertension G8 MOTHER Hypertension G8 MOTHER G8 FATHER Allergies: Coded Allergies: Aspirin (Verified Allergy, Unknown, 04/12/23) Fentanyl (Verified Allergy, Unknown, 04/12/23) Gatifloxacin (Verified Allergy, Unknown, 04/12/23) Levofloxacin (Verified Allergy, Unknown, 04/12/23) No Known Drug Allergy (Verified Allergy, Unknown, 10/18/15) Oxycodone (Verified Allergy, Unknown, 04/12/23) Uncoded Allergies: ADHESIVE (Allergy, Unknown, 04/13/23) DEMEROL (Allergy, Unknown, 04/12/23) Home Meds Reported Medications Memantine HCl (Memantine Hydrochloride E) 28 Mg Cap, 28 MG PO, CAP 04/13/23 Donepezil Hydrochloride (DONEPEZIL HCL) 10 Mg Tab, 10 MG PO DAILY, TAB 04/13/23 Ezetimibe (Ezetimibe) 10 Mg Tab, 10 MG PO DAILY, TAB 04/13/23 Rivastigmine Tartrate (Rivastigmine Tartrate) 1.5 Mg Cap, 1.5 MG PO BID, CAP 04/13/23 Losartan Potassium (COZAAR TABLET) 50 Mg Tb, 25 MG PO BID 10/18/15 Amlodipine Besylate (NORVASC TABLET) 5 Mg Tb, 5 MG PO DAILY 10/18/15 Amlodipine Besylate (NORVASC TABLET) 5 Mg Tb, 5 MG GT 10/18/15 Nitroglycerin (NTROSTAT SUBLINGUAL) 0.4 Mg Sl, 0.4 MG SL PRN *MAY REPEAT EVERY 5 MINUTES X 3 TOTAL IF NO RELIEF, INITIATE ANALGESIC THERAPY. NOTIFY PHYSICIAN *Do not crush. 10/18/15 Arformoterol Tartrate (Brovana) 15 Mcg Neb, 15 MCG IN BID 10/18/15 Fluticasone-Salmeterol (Advair Diskus 250/50) 1 Puff Ih, 1 PUFF INH BID, #3 INHALER 3 Refills 10/18/15 Omeprazole (PRILOSEC) 20 Mg Cap, 20 MG PO DAILY, CAP 10/18/15 Simvastatin (Zocor) 20 Mg Tab, 20 MG PO HS, #30 MG 0 Refills 10/18/15 Gabapentin (Gabapentin) 300 Mg Cap, 300 MG PO TID, CAP 10/18/15 Metoprolol Succinate (Toprol Xl) 50 Mg Tab, 50 MG PO BID, TAB 10/18/15 Lisinopril (Lisinopril) 20 Mg Tab, 20 MG PO DAILY, TAB 10/18/15 Potassium Chloride (Klor-Con M10) 10 Meq Tab, 8 MEQ PO, TAB 10/18/15 Furosemide (Furosemide) 40 Mg Tab, 40 MG PO BIDD for 30 Days, MG 10/18/15 Ibuprofen (Ibuprofen) 800 Mg Tab, 800 MG PO BID, MG 10/18/15 Digoxin (Digoxin) 0.25 Mg Tab, 0.25 MG PO DAILY for 30 Days, MG 10/18/15 Current Medications Current Medications Medications (Trade) Dose Ordered Sig/Victorina Route PRN Reason Start Time Stop Time Status Last Admin Amlodipine Besylate (Norvasc Tablet) 5 mg DAILY PO 04/09/24 10:00 04/09/24 10:24 Memantine (Namenda Tablet) 10 mg DAILY PO 04/09/24 10:00 04/09/24 10:23 Pantoprazole Sodium (Protonix Tablet) 40 mg DAILY@0600 PO 04/09/24 06:00 Haloperidol Lactate (Haldol) 2.5 mg Q4HPRN PRN IM AGITATION 04/09/24 11:15 04/09/24 16:56 Review of Systems Constitutional: reports: weakness; denies: chills, diaphoresis, fatigue, fever, malaise, sweats, others EENTM: denies: blurred vision, double vision, ear bleeding, ear discharge, ear drainage, ear pain, ear ringing, eye pain, eye redness, hearing loss, mouth pain, mouth swelling, nasal discharge, nose bleeding, nose congestion, nose pain, photophobia, tearing, throat pain, throat swelling, voice changes, others Respiratory: denies: cough, hemoptysis, orthopnea, SOB at rest, shortness of breath, SOB with excertion, stridor, wheezing, others Cardiovascular: denies: chest pain, dizzy spells, diaphoresis, Dyspnea on exertion, edema, irregular heart beat, left arm pain, lightheadedness, palpitations, PND, syncope, others Gastrointestinal: denies: abdomen distended, abdominal pain, blood streaked bowels, constipated, diarrhea, dysphagia, difficulty swallowing, hematemesis, melena, nausea, poor appetite, poor fluid intake, rectal bleeding, rectal pain, vomiting, others Genitourinary: denies: abnormal vagina bleeding, burning, dyspareunia, dysuria, flank pain, frequency, hematuria, incontinence, pain, , vagina discharge, urgency, others Neurological: denies: dizziness, fainting, headache, left sided numbness, left sided weakness, numbness, paresthesia, pre-existing deficit, right sided numbness, right sided weakness, seizure, speech problems, tingling, tremors, weakness, others Musculoskeletal: denies: back pain, gout, joint pain, joint swelling, muscle pain, muscle stiffness, neck pain, others Integumetry: denies: bruises, change in color, change in hair/nails, dryness, laceration, lesions, lumps, rash, wounds, others Allergic/Immunocompromised: denies: Difficulty Healing, Frequent Infections, Hives, Itching, others Hematologic/Lymphatic: denies: anemia, blood clots, easy bleeding, easy bruising, swollen glands, others Endocrine: denies: excessive hunger, excessive sweating, excessive thirst, excessive urination, flushing, intolerance to cold, intolerance to heat, unexplained weight gain, unexplained weight loss, others Psychiatric: denies: anxiety, bipolar disorder, depression, hopeless, panic disorder, schizophrenia, sleepless, suicidal, others Unable to Obtain due to: Dementia All Other Systems: Reviewed and Negative Vital Signs Vital Signs Date Time Temp Pulse Resp B/P (MAP) Pulse Ox O2 Delivery O2 Flow Rate FiO2 04/09/24 20:00 97.3 63 16 141/75 (97) 94 97.3 04/09/24 07:59 Room Air* 0 21 Physical Exam GENERAL: Awake, alert, oriented. LUNGS: Clear. CARDIOVASCULAR: Heart sounds are good. ABDOMEN: Soft. Labs/Diagnostic Data Labs Test 04/09/24 14:00 04/08/24 16:54 04/08/24 14:27 Range/Units Vitamin B12 Level 443 211-911 pg/mL Vitamin D 25-Hydroxy 90.9 30.0-100 ng/mL Folic Acid 12.14 >5.38 ng/mL Thyroid Stimulating Hormone (TSH) 1.16 0.55-4.78 uIU/mL Plasma/Serum Blood Alcohol 4.3 <10 mg/dL Urine Color Yellow Yellow Urine Clarity Turbid H Clear Urine pH 6.0 5.0-9.0 Urine Specific [place] 1.028 1.001-1.035 Urine Protein 1+ H Negative Urine Ketones Negative Negative Urine Blood Negative Negative /uL Urine Nitrite Negative Negative Urine Bilirubin Negative Negative Urine Urobilinogen Normal Negative mg/dL Urine Leukocyte Esterase Negative Negative /uL Urine RBC 3 0 - 4 /hpf Urine WBC 2 0 - 5 /hpf Urine Squamous Epithelial Cells Mod <5 /hpf Urine Bacteria None seen None Seen /hpf Urine Hyaline Casts Mod 0 - 2 /lpf Urine Mucus Few None Seen Urine Glucose Trace Normal mg/dL White Blood Count 4.6 4.4-10.8 10^3/uL Red Blood Count 4.95 4.0-5.20 10^6/uL Hemoglobin 14.9 12.2-16.2 g/dL Hematocrit 45.3 36.0-46.0 % Mean Corpuscular Volume 91.5 80.0-100.0 fL Mean Corpuscular Hemoglobin 30.1 28.0-32.0 pg Mean Corpuscular Hemoglobin Concent 32.9 32.0-36.0 g/dL Red Cell Distribution Width 14.4 H 11.8-14.3 % Platelet Count 140 140-450 10^3/uL Mean Platelet Volume 8.9 6.9-10.8 fL Neutrophils (%) (Auto) 57.1 37.0-80.0 % Lymphocytes (%) (Auto) 31.1 10.0-50.0 % Monocytes (%) (Auto) 7.6 0.0-12.0 % Eosinophils (%) (Auto) 3.4 0.0-7.0 % Basophils (%) (Auto) 0.8 0.0-2.0 % Neutrophils # (Auto) 2.6 1.6-8.6 10 ^3/uL Lymphocytes # (Auto) 1.4 0.4-5.4 10 ^3/uL Monocytes # (Auto) 0.3 0-1.3 10 ^3/uL Eosinophils # (Auto) 0.2 0-0.8 10 ^3/uL Basophils # (Auto) 0 0-0.2 10 ^3/uL Nucleated Red Blood Cells 0.1 % Sodium Level 141 136-145 mmol/L Potassium Level 4.2 3.5-5.1 mmol/L Chloride Level 106 98-107 mmol/L Carbon Dioxide Level 29 20-31 mmol/L Anion Gap 6 5-15 Blood Urea Nitrogen 14 9-23 mg/dL Creatinine 1.11 H 0.550-1.02 mg/dL Glomerular Filtration Rate Calc 51 >90 mL/min BUN/Creatinine Ratio 12.6 10.0-20.0 Serum Glucose 146 H 74-106 mg/dL Calcium Level 10.0 8.7-10.4 mg/dL Troponin I High Sensitivity < 3 L </=34 ng/L Assessment Syncope. Dementia. Hypertension Plan/Recommendation I agree with your ongoing assessment and care of plan. Echocardiogram. Amlodipine. Lipitor. Morphine for pain management. GI prophylactics. Additional plan as per the hospital course. A total of 45 minutes was spent reviewing the patient record, examining the patient, making a diagnostic and therapeutic plan, discussing this plan with medical personnel, following up on diagnostic studies and following the patient for clinical stability excluding any and all procedures. At least 50% of this time was spent in direct, [id number] contact. Plan discussed with: Patient CHELSYKERRY Lopez MD Apr 09, 2024 22:58
[2024-04-10] VITALS (7 sets, daily range): BP systolic 116–144; BP diastolic 67–74; PULSE 66–85; RESP 16–20; TEMP 97.7–98; O2SAT 88–96
[2024-04-10] MEDS ORDERED: QUET25TA37 PO (00:50)
--- NOTE | 2024-04-10 09:51 | DVHPN2 ---
Reviewed: Care Plan, H&P, Labs, Medications, Previous Orders, Radiology Changes from previous H/P or p: No Changes Objective Vitals Vital Signs Date Time Temp Pulse Resp B/P (MAP) Pulse Ox O2 Delivery O2 Flow Rate FiO2 04/10/24 05:00 98.0 78 16 144/72 (96) 88 98.0 04/09/24 22:55 Room Air* 0 21 Intake/Output Intake and Output 04/10/24 07:00 Intake Total 0 ml Balance 0 ml Intake Oral 0 ml # Voids 1 Medications Current Medications Medications Dose Ordered Sig/Victorina Route Start Time Stop Time Status Last Admin Dose Admin Nitroglycerin 0.4 mg Q5MINP PRN SL 04/08/24 22:00 Morphine Sulfate 2 mg Q30M PRN IV 04/08/24 22:00 Amlodipine Besylate 5 mg DAILY PO 04/09/24 10:00 04/09/24 10:24 5 MG Donepezil HCl 10 mg HS PO 04/08/24 22:00 04/08/24 22:20 10 MG Memantine 10 mg DAILY PO 04/09/24 10:00 04/09/24 10:23 10 MG Pantoprazole Sodium 40 mg DAILY@0600 PO 04/09/24 06:00 Atorvastatin Calcium 20 mg HS PO 04/08/24 22:00 Temazepam 15 mg HSPRN PRN PO 04/08/24 22:00 Haloperidol Lactate 2.5 mg Q4HPRN PRN IM 04/09/24 11:15 04/09/24 16:56 2.5 MG Laboratory Results Laboratory Tests 04/08/24 14:27 HgA1c, TSH Test 04/09/24 14:00 Thyroid Stimulating Hormone (TSH) 1.16 uIU/mL (0.55-4.78) Urinalysis Test 04/08/24 16:54 Urine Color Yellow (Yellow) Urine Clarity Turbid (Clear) H Urine pH 6.0 (5.0-9.0) Urine Specific [place] 1.028 (1.001-1.035) Urine Protein 1+ (Negative) H Urine Ketones Negative (Negative) Urine Blood Negative /uL (Negative) Urine Nitrite Negative (Negative) Urine Bilirubin Negative (Negative) Urine Urobilinogen Normal mg/dL (Negative) Urine Leukocyte Esterase Negative /uL (Negative) Urine RBC 3 /hpf (0 - 4) Urine WBC 2 /hpf (0 - 5) Urine Squamous Epithelial Cells Mod /hpf (<5) Urine Bacteria None seen /hpf (None Seen) Urine Hyaline Casts Mod /lpf (0 - 2) Urine Mucus Few (None Seen) Urine Glucose Trace mg/dL (Normal) Labs and/or images reviewed: Labs reviewed by me, Image(s) reviewed by me Assessment/Plan Assessment/Plan Syncope, rule out orthostatic hypotension, tachy-estefany arrhythmias, TIA. Cardiology consult by Dr. Marquez appreciated, echo 55 % ejection, Neurology consult pending Possible TIA Dementia History of hypertension Advanced care planning time [address] head negative Carotid ultrasound negative Patient is full code Time Spent 55 minutes Plan discussed with: Patient My Orders Orders - DEJON WILDER MD Procedure Category Date Status Time Haloperidol Lactate PHA 04/09/24 In Process Injection (Haldol) 11:15 Drug Screen LAB 04/09/24 Logged 13:06 * Neurology Consult CONS 04/09/24 Transmitted 13:06 * Cardiology Consult CONS 04/09/24 Transmitted 13:17 * Supervisor Ref[employer] CONS 04/10/24 Transmitted Consult 00:06 Date of Service: Apr 10, 2024 Billing Provider: DEJON WILDER MD Common Visit Codes: [id number] INP/OBS CARE(HIGH) DEJON WILDER MD Apr 10, 2024 09:51
--- NOTE | 2024-04-10 14:57 | DVHPN2 ---
Progress Note - Dictate Date Seen: Apr 10, 2024 Medical Necessity Reason Pt with a Central, PICC or Fol: No Subjective Patient was seen and evaluated in follow up. Per nursing staff, patient has been combative and uncooperative. Patient has a sitter at bedside. Echocardiogram showed EF of 55%, RV enlarged, biatrial enlargement, pacing lead in RV. vital signs Vital Sign Date Time Temp Pulse Resp B/P (MAP) Pulse Ox O2 Delivery O2 Flow Rate FiO2 04/10/24 09:00 97.8 66 17 143/72 (95) 90 97.8 04/10/24 08:00 Room Air* 0 21 Total Intake and Output 04/09/24 04/09/24 04/10/24 15:00 23:00 07:00 Intake Total 0 ml Balance 0 ml medications Current Medications Medications Dose Ordered Sig/Victorina Route Start Time Stop Time Status Last Admin Dose Admin Nitroglycerin 0.4 mg Q5MINP PRN SL 04/08/24 22:00 Morphine Sulfate 2 mg Q30M PRN IV 04/08/24 22:00 Amlodipine Besylate 5 mg DAILY PO 04/09/24 10:00 04/09/24 10:24 5 MG Donepezil HCl 10 mg HS PO 04/08/24 22:00 04/08/24 22:20 10 MG Memantine 10 mg DAILY PO 04/09/24 10:00 04/09/24 10:23 10 MG Pantoprazole Sodium 40 mg DAILY@0600 PO 04/09/24 06:00 Atorvastatin Calcium 20 mg HS PO 04/08/24 22:00 Temazepam 15 mg HSPRN PRN PO 04/08/24 22:00 Haloperidol Lactate 2.5 mg Q4HPRN PRN IM 04/09/24 11:15 04/10/24 13:30 2.5 MG objective GENERAL: Awake, alert, oriented. LUNGS: Clear. CARDIOVASCULAR: Heart sounds are good. ABDOMEN: Soft. laboratory and microbiology Laboratory Tests 04/08/24 14:27 Test 04/08/24 14:27 Range/Units Serum Glucose 146 H 74-106 mg/dL Problem List Syncope. Dementia. Hypertension. Assessment/Plan Continued all current supportive medical care. Amlodipine. Lipitor. Morphine for pain management. GI prophylactics. Additional plan as per the hospital course. Plan discussed with: Patient KERRY VALENTINO MD Apr 10, 2024 13:52
--- NOTE | 2024-04-10 22:24 | DVHINCON2 ---
Date of service: Apr 10, [address] Myers Reason for Consultation Syncope History of Present Illness Ms. Bhatia is a 79 years old right-handed female with a history of hypertension, dyslipidemia, coronary artery disease, heart attack, TIA, dementia, COPD, the patient was brought to the [facility] on 04/08/2024 with a chief company of general weakness. At this time, she was awake, but is only oriented to herself, the history is obtained from her daughter, On 04/08/2024, when the patient was walking inside a store with her daughter, she reported not feeling good, weak, and she was sitting down in the place there was no seat chair, and then the patient fell into her daughter arm, became nonresponsive, eyes rolling back, the patient was holding up for a few minutes and, she woke up about 1 minute after she was helped down. She was never had similar problem before, she was no history of seizure About 10 years ago, the patient was had slurred speech, the patient was seen in the [facility] and she was said to have TIA. Her daughter relates the patient was on Zetia, but no aspirin or blood thinner She was progressive memory difficulty for more than 5-6 years, at the beginning only the short-term memory was affected, but for two years, the patient was has no long-term memory, she does not remember her daughter who stay with her 24/10. Her daughter relates the patient was donepezil 10 mg daily, memantine 28 mg daily, rivastigmine. She was takes Seroquel 25 mg b.i.d. for hallucination, agitation Her sitter reports the patient was easily agitated, and she was violent on 04/09/2024 [phone], ray Plasma alcohol, 04/09/2024: 4.3 Urinalysis, 04/08/2024: WBC: 2, urine leukocyte esterase: Negative CBC, 04/08/2024: Unremarkable BUN/CR, 04/08/2024: 14/1.11 GFR, 04/08/2024: 51 Vitamin B12, 04/09/2024: 443 Folic acid, 04/09/2024: 12.14 TSH, 04/09/2024: 1.16 Carotid Doppler, 04/08/24: No hemodynamically significant stenosis noted in the right carotid system. No hemodynamically significant stenosis noted in the left carotid system CT head, 04/08/24: No acute intracranial abnormality Past Medical History Hypertension, dyslipidemia, coronary artery disease, heart attack, TIA, dementia, COPD Past Surgical History Pacemaker insertion, cervical spine surgery, lumbar spine surgery, shoulder surgery, bilateral hand surgery Family History: Diabetes during Diabetes mellitus G8 MOTHER G8 FATHER FH: breast cancer G8 MOTHER Family history: Diabetes mellitus G8 MOTHER Family history: Hypertension G8 MOTHER Hypertension G8 MOTHER G8 FATHER Family History Breast cancer, hypertension, diabetes, no dementia Social History She has not tobacco smoke, no history of alcohol or recreational substance abuse Allergies: Coded Allergies: Aspirin (Verified Allergy, Unknown, 04/12/23) Fentanyl (Verified Allergy, Unknown, 04/12/23) Gatifloxacin (Verified Allergy, Unknown, 04/12/23) Levofloxacin (Verified Allergy, Unknown, 04/12/23) No Known Drug Allergy (Verified Allergy, Unknown, 10/18/15) Oxycodone (Verified Allergy, Unknown, 04/12/23) Uncoded Allergies: ADHESIVE (Allergy, Unknown, 04/13/23) DEMEROL (Allergy, Unknown, 04/12/23) Home Meds Reported Medications Quetiapine Fumerate (Seroquel) 25 Mg Tab, 25 MG PO TID, TAB 04/10/24 Memantine HCl (Memantine Hydrochloride E) 28 Mg Cap, 28 MG PO, CAP 04/13/23 Donepezil Hydrochloride (DONEPEZIL HCL) 10 Mg Tab, 10 MG PO DAILY, TAB 04/13/23 Ezetimibe (Ezetimibe) 10 Mg Tab, 10 MG PO DAILY, TAB 04/13/23 Rivastigmine Tartrate (Rivastigmine Tartrate) 1.5 Mg Cap, 1.5 MG PO BID, CAP 04/13/23 Ibuprofen (Ibuprofen) 800 Mg Tab, 800 MG PO BID, MG 10/18/15 Discontinued Reported Medications Losartan Potassium (COZAAR TABLET) 50 Mg Tb, 25 MG PO BID 10/18/15 Amlodipine Besylate (NORVASC TABLET) 5 Mg Tb, 5 MG PO DAILY 10/18/15 Amlodipine Besylate (NORVASC TABLET) 5 Mg Tb, 5 MG GT 10/18/15 Nitroglycerin (NTROSTAT SUBLINGUAL) 0.4 Mg Sl, 0.4 MG SL PRN *MAY REPEAT EVERY 5 MINUTES X 3 TOTAL IF NO RELIEF, INITIATE ANALGESIC THERAPY. NOTIFY PHYSICIAN *Do not crush. 10/18/15 Arformoterol Tartrate (Brovana) 15 Mcg Neb, 15 MCG IN BID 10/18/15 Fluticasone-Salmeterol (Advair Diskus 250/50) 1 Puff Ih, 1 PUFF INH BID, #3 INHALER 3 Refills 10/18/15 Omeprazole (PRILOSEC) 20 Mg Cap, 20 MG PO DAILY, CAP 10/18/15 Simvastatin (Zocor) 20 Mg Tab, 20 MG PO HS, #30 MG 0 Refills 10/18/15 Gabapentin (Gabapentin) 300 Mg Cap, 300 MG PO TID, CAP 10/18/15 Metoprolol Succinate (Toprol Xl) 50 Mg Tab, 50 MG PO BID, TAB 10/18/15 Lisinopril (Lisinopril) 20 Mg Tab, 20 MG PO DAILY, TAB 10/18/15 Potassium Chloride (Klor-Con M10) 10 Meq Tab, 8 MEQ PO, TAB 10/18/15 Furosemide (Furosemide) 40 Mg Tab, 40 MG PO BIDD for 30 Days, MG 10/18/15 Digoxin (Digoxin) 0.25 Mg Tab, 0.25 MG PO DAILY for 30 Days, MG 10/18/15 Review of Systems As above, the other systems are negative Vital Signs Vital Signs Date Time Temp Pulse Resp B/P (MAP) Pulse Ox O2 Delivery O2 Flow Rate FiO2 04/10/24 17:00 97.7 85 18 116/74 (88) 91 97.7 04/10/24 08:00 Room Air* 0 21 Physical Exam GENERAL EXAM: General: the patient is well developed and nourished. No acute distress. HEENT: Normocephalic, neck is supple, no carotid bruits. No mass. RESPIRATORY: Normal respiratory effort with symmetrical lung expansion. Lungs clear to auscultation. CARDIOVASCULAR: Regular rate and rhythm with no murmurs. S1, S2. ABDOMEN: Soft, nontender, normal bowel sound NEUROLOGICAL: MENTAL STATUS: HPI SPEECH, LANGUAGE, HIGHER CORTICAL FUNCTION: no aphasia or dysathria. CRANIAL NERVES: #2: Intact visual caruso to confrontation. The optic discs were sharp. #3,4,6: Pupils are equal, round and reactive. EOMs full and conjugate. No nystagmus. #5: Facial sensation intact in all three divisions bilaterally. Mandibular strength intact. #7: Facial muscles symmetrical and strength intact. #8: Hearing grossly normal to voice. #9,10: Uvula and soft palate rise in the midline. Swallow and voice are normal. #11: Trapezius and sternomastoid strength intact bilaterally. #12: Tongue midline. No fasciculations or atrophy. SENSATION: Sensation to touch and pinprick is normal. MOTOR: Normal tone in the upper and lower extremity. Normal muscle bulk. No fasciculations. No abnormal movements or posturing. Moves the arms and legs, the muscle power is no less than 4/5 in the arm, 3/5 in the legs. REFLEXES: Deep tendon reflexes are symmetrical. No pathological reflexes. CEREBELLAR/COORDINATION: Not cooperative, but no ataxia noticed GAIT/STATION: deferred. Labs/Diagnostic Data Labs Test 04/09/24 14:00 04/08/24 16:54 04/08/24 14:27 Range/Units Vitamin B12 Level 443 211-911 pg/mL Vitamin D 25-Hydroxy 90.9 30.0-100 ng/mL Folic Acid 12.14 >5.38 ng/mL Thyroid Stimulating Hormone (TSH) 1.16 0.55-4.78 uIU/mL Plasma/Serum Blood Alcohol 4.3 <10 mg/dL Urine Color Yellow Yellow Urine Clarity Turbid H Clear Urine pH 6.0 5.0-9.0 Urine Specific [place] 1.028 1.001-1.035 Urine Protein 1+ H Negative Urine Ketones Negative Negative Urine Blood Negative Negative /uL Urine Nitrite Negative Negative Urine Bilirubin Negative Negative Urine Urobilinogen Normal Negative mg/dL Urine Leukocyte Esterase Negative Negative /uL Urine RBC 3 0 - 4 /hpf Urine WBC 2 0 - 5 /hpf Urine Squamous Epithelial Cells Mod <5 /hpf Urine Bacteria None seen None Seen /hpf Urine Hyaline Casts Mod 0 - 2 /lpf Urine Mucus Few None Seen Urine Glucose Trace Normal mg/dL White Blood Count 4.6 4.4-10.8 10^3/uL Red Blood Count 4.95 4.0-5.20 10^6/uL Hemoglobin 14.9 12.2-16.2 g/dL Hematocrit 45.3 36.0-46.0 % Mean Corpuscular Volume 91.5 80.0-100.0 fL Mean Corpuscular Hemoglobin 30.1 28.0-32.0 pg Mean Corpuscular Hemoglobin Concent 32.9 32.0-36.0 g/dL Red Cell Distribution Width 14.4 H 11.8-14.3 % Platelet Count 140 140-450 10^3/uL Mean Platelet Volume 8.9 6.9-10.8 fL Neutrophils (%) (Auto) 57.1 37.0-80.0 % Lymphocytes (%) (Auto) 31.1 10.0-50.0 % Monocytes (%) (Auto) 7.6 0.0-12.0 % Eosinophils (%) (Auto) 3.4 0.0-7.0 % Basophils (%) (Auto) 0.8 0.0-2.0 % Neutrophils # (Auto) 2.6 1.6-8.6 10 ^3/uL Lymphocytes # (Auto) 1.4 0.4-5.4 10 ^3/uL Monocytes # (Auto) 0.3 0-1.3 10 ^3/uL Eosinophils # (Auto) 0.2 0-0.8 10 ^3/uL Basophils # (Auto) 0 0-0.2 10 ^3/uL Nucleated Red Blood Cells 0.1 % Sodium Level 141 136-145 mmol/L Potassium Level 4.2 3.5-5.1 mmol/L Chloride Level 106 98-107 mmol/L Carbon Dioxide Level 29 20-31 mmol/L Anion Gap 6 5-15 Blood Urea Nitrogen 14 9-23 mg/dL Creatinine 1.11 H 0.550-1.02 mg/dL Glomerular Filtration Rate Calc 51 >90 mL/min BUN/Creatinine Ratio 12.6 10.0-20.0 Serum Glucose 146 H 74-106 mg/dL Calcium Level 10.0 8.7-10.4 mg/dL Troponin I High Sensitivity < 3 L </=34 ng/L Assessment Passing out event Likely she had syncope Rule out partial complex seizure Rule out TIA Dementia, with hallucination/agitation, she likes to has advanced dementia Plan/Recommendation Monitoring Supportive treatment Telemetry EEG Lipitor 20 mg daily Memantine 10 mg b.i.d. Aricept 10 mg daily Resume Seroquel 25 mg b.i.d. Haldol 2.5 mg p.r.n. GI prophylaxis Up to chair Physical therapy Follow up with her PCP and neurologist on discharge Prognosis: Poor This medical document was created using an electronic medical record system with [employer] dictation system. Although this document has been carefully reviewed, there may still be some phonetic and typographical errors. These areas are purely typographical due to imperfections of the software programs, and do not reflect any compromise in the patient's medical care. Plan discussed with: Daughter, Other SELAM YARBROUGH MD Apr 10, 2024 22:24
[2024-04-11] VITALS (8 sets, daily range): BP systolic 129–160; BP diastolic 66–85; PULSE 53–77; RESP 16–18; TEMP 97.2–97.6; O2SAT 93–97
--- NOTE | 2024-04-11 09:18 | DVHPN2 ---
Reviewed: Care Plan, H&P, Labs, Medications, Previous Orders, Radiology Changes from previous H/P or p: No Changes Objective Vitals Vital Signs Date Time Temp Pulse Resp B/P (MAP) Pulse Ox O2 Delivery O2 Flow Rate FiO2 04/11/24 08:38 97.5 53 16 129/77 (94) 93 97.5 04/10/24 20:00 Room Air* 0 21 Intake/Output Intake and Output 04/11/24 07:00 Intake Total 0 ml Output Total 250 ml Balance -250 ml Intake Oral 0 ml Output Urine Total 250 ml # Voids 1 Medications Current Medications Medications Dose Ordered Sig/Victorina Route Start Time Stop Time Status Last Admin Dose Admin Nitroglycerin 0.4 mg Q5MINP PRN SL 04/08/24 22:00 Morphine Sulfate 2 mg Q30M PRN IV 04/08/24 22:00 Amlodipine Besylate 5 mg DAILY PO 04/09/24 10:00 04/09/24 10:24 5 MG Donepezil HCl 10 mg HS PO 04/08/24 22:00 04/08/24 22:20 10 MG Memantine 10 mg DAILY PO 04/09/24 10:00 04/09/24 10:23 10 MG Pantoprazole Sodium 40 mg DAILY@0600 PO 04/09/24 06:00 Atorvastatin Calcium 20 mg HS PO 04/08/24 22:00 Temazepam 15 mg HSPRN PRN PO 04/08/24 22:00 Haloperidol Lactate 2.5 mg Q4HPRN PRN IM 04/09/24 11:15 04/10/24 13:30 2.5 MG Quetiapine Fumarate 25 mg BID PO 04/11/24 10:00 Laboratory Results Laboratory Tests 04/08/24 14:27 Urinalysis Test 04/08/24 16:54 Urine Color Yellow (Yellow) Urine Clarity Turbid (Clear) H Urine pH 6.0 (5.0-9.0) Urine Specific [place] 1.028 (1.001-1.035) Urine Protein 1+ (Negative) H Urine Ketones Negative (Negative) Urine Blood Negative /uL (Negative) Urine Nitrite Negative (Negative) Urine Bilirubin Negative (Negative) Urine Urobilinogen Normal mg/dL (Negative) Urine Leukocyte Esterase Negative /uL (Negative) Urine RBC 3 /hpf (0 - 4) Urine WBC 2 /hpf (0 - 5) Urine Squamous Epithelial Cells Mod /hpf (<5) Urine Bacteria None seen /hpf (None Seen) Urine Hyaline Casts Mod /lpf (0 - 2) Urine Mucus Few (None Seen) Urine Glucose Trace mg/dL (Normal) Labs and/or images reviewed: Labs reviewed by me, Image(s) reviewed by me Assessment/Plan Assessment/Plan Syncope, rule out orthostatic hypotension, tachy-estefany arrhythmias, TIA. Cardiology consult by Dr. Marquez appreciated, echo 55 % ejection fraction, Neurology consult by Dr. Benavides appreciated, EEG pending, placed on Seroquel and Haldol p.r.n. Possible TIA, patient's neurologist Dr. Sukumar Marquez Dementia: Namenda Aricept History of hypertension blood pressure normal patient's daughter wants her to take off of BP meds Advanced care planning time [address] head negative Carotid ultrasound negative Echo 55 % ejection fraction Physical therapy ordered Patient is full code Time Spent 45 minutes Daughter Kavya [phone] at bedside Plan discussed with: Patient My Orders Orders - DEJON WILDER MD Procedure Category Date Status Time Communication Order ORDERS 04/10/24 Transmitted 09:52 Date of Service: Apr 11, 2024 Billing Provider: DEJON WILDER MD Common Visit Codes: [id number] INP/OBS CARE(HIGH) DEJON WILDER MD Apr 11, 2024 09:18
[2024-04-11] MEDS: QUEtiapine FUMARATE 25 MG TAB PO SCH (12:42)
--- NOTE | 2024-04-11 20:46 | DVHPN2 ---
Progress Note - Dictate Date Seen: Apr 11, 2024 Medical Necessity Reason Pt with a Central, PICC or Fol: No Subjective Ms. Bhatia is a 79 years old right-handed female with a history of hypertension, dyslipidemia, coronary artery disease, heart attack, TIA, dementia, COPD, the patient was brought to the [facility] on 04/08/2024 with a chief company of general weakness. I have seen and examined the patient, I have discussed with her nurse and sitter, the patient was doing about the same as yesterday, awake, not oriented, not cooperative, but she was vital and medications. [phone], ray Plasma alcohol, 04/09/2024: 4.3 Urinalysis, 04/08/2024: WBC: 2, urine leukocyte esterase: Negative CBC, 04/08/2024: Unremarkable BUN/CR, 04/08/2024: 14/1.11 GFR, 04/08/2024: 51 Vitamin B12, 04/09/2024: 443 Folic acid, 04/09/2024: 12.14 TSH, 04/09/2024: 1.16 Carotid Doppler, 04/08/24: No hemodynamically significant stenosis noted in the right carotid system. No hemodynamically significant stenosis noted in the left carotid system CT head, 04/08/24: No acute intracranial abnormality vital signs Vital Sign Date Time Temp Pulse Resp B/P (MAP) Pulse Ox O2 Delivery O2 Flow Rate FiO2 04/11/24 20:38 73 18 04/11/24 17:00 97.2 129/66 (87) 97 97.2 04/11/24 08:30 Room Air* 0 21 Total Intake and Output 04/10/24 04/10/24 04/11/24 15:00 23:00 07:00 Intake Total 0 ml Output Total 250 ml Balance -250 ml 0 ml medications Current Medications Medications Dose Ordered Sig/Victorina Route Start Time Stop Time Status Last Admin Dose Admin Nitroglycerin 0.4 mg Q5MINP PRN SL 04/08/24 22:00 Morphine Sulfate 2 mg Q30M PRN IV 04/08/24 22:00 Amlodipine Besylate 5 mg DAILY PO 04/09/24 10:00 04/11/24 12:43 5 MG Donepezil HCl 10 mg HS PO 04/08/24 22:00 04/08/24 22:20 10 MG Memantine 10 mg DAILY PO 04/09/24 10:00 04/11/24 12:42 10 MG Pantoprazole Sodium 40 mg DAILY@0600 PO 04/09/24 06:00 Atorvastatin Calcium 20 mg HS PO 04/08/24 22:00 Temazepam 15 mg HSPRN PRN PO 04/08/24 22:00 Haloperidol Lactate 2.5 mg Q4HPRN PRN IM 04/09/24 11:15 04/11/24 12:45 2.5 MG Quetiapine Fumarate 25 mg BID PO 04/11/24 10:00 04/11/24 12:42 25 MG objective General: the patient is well developed and nourished. No acute distress. MENTAL STATUS: Subjective SPEECH, LANGUAGE, HIGHER CORTICAL FUNCTION: no aphasia or dysathria. CRANIAL NERVES: Pupils are equal, round and reactive. EOMs full and conjugate. No nystagmus. Facial sensation intact in all three divisions bilaterally. Mandibular strength intact. Facial muscles symmetrical and strength intact. SENSATION: Sensation to touch and pinprick is normal. MOTOR: Normal tone in the upper and lower extremity. Normal muscle bulk. No fasciculations. No abnormal movements or posturing. Moves the arms and legs, the muscle power is no less than 4/5 in the arm, 3/5 in the legs. REFLEXES: Deep tendon reflexes are symmetrical. No pathological reflexes. CEREBELLAR/COORDINATION: Not cooperative, but no ataxia noticed GAIT/STATION: deferred. laboratory and microbiology Laboratory Tests 04/08/24 14:27 Test 04/08/24 14:27 Range/Units Serum Glucose 146 H 74-106 mg/dL Problem List Passing out event Likely she had syncope Rule out partial complex seizure Rule out TIA Dementia, with hallucination/agitation, she likes to has advanced dementia Assessment/Plan Monitoring Supportive treatment Telemetry EEG Lipitor 20 mg daily Memantine 10 mg b.i.d. Aricept 10 mg daily Resume Seroquel 25 mg b.i.d. Haldol 2.5 mg p.r.n. GI prophylaxis Up to chair Physical therapy Follow up with her PCP and neurologist on discharge This medical document was created using an electronic medical record system with [employer] dictation system. Although this document has been carefully reviewed, there may still be some phonetic and typographical errors. These areas are purely typographical due to imperfections of the software programs, and do not reflect any compromise in the patient's medical care. Prognosis poor Dietary Evaluation Review Comments: 1) Advance pt diet when medically feasible to a 2gm Sodium diet 2) Continue current plan of care Expected Outcomes/Goals: 1) Pt diet to advance 2) F/U in 2-3 days Plan discussed with: Other SELAM YARBROUGH MD Apr 11, 2024 20:46
--- NOTE | 2024-04-11 21:39 | DVHPN2 ---
Progress Note - Dictate Date Seen: Apr 11, 2024 Medical Necessity Reason Pt with a Central, PICC or Fol: No Subjective Patient was seen and evaluated in follow up. Sitter at bedside. Patient is awake, not oriented. EEG is pending. Swallow eval was cancelled this afternoon. HR fluctuating between NSR and bradycardia. vital signs Vital Sign Date Time Temp Pulse Resp B/P (MAP) Pulse Ox O2 Delivery O2 Flow Rate FiO2 04/11/24 12:57 97.6 77 16 160/85 (110) 95 97.6 04/10/24 20:00 Room Air* 0 21 Total Intake and Output 04/10/24 04/10/24 04/11/24 15:00 23:00 07:00 Intake Total 0 ml Output Total 250 ml Balance -250 ml 0 ml medications Current Medications Medications Dose Ordered Sig/Victorina Route Start Time Stop Time Status Last Admin Dose Admin Nitroglycerin 0.4 mg Q5MINP PRN SL 04/08/24 22:00 Morphine Sulfate 2 mg Q30M PRN IV 04/08/24 22:00 Amlodipine Besylate 5 mg DAILY PO 04/09/24 10:00 04/11/24 12:43 5 MG Donepezil HCl 10 mg HS PO 04/08/24 22:00 04/08/24 22:20 10 MG Memantine 10 mg DAILY PO 04/09/24 10:00 04/11/24 12:42 10 MG Pantoprazole Sodium 40 mg DAILY@0600 PO 04/09/24 06:00 Atorvastatin Calcium 20 mg HS PO 04/08/24 22:00 Temazepam 15 mg HSPRN PRN PO 04/08/24 22:00 Haloperidol Lactate 2.5 mg Q4HPRN PRN IM 04/09/24 11:15 04/11/24 12:45 2.5 MG Quetiapine Fumarate 25 mg BID PO 04/11/24 10:00 04/11/24 12:42 25 MG objective GENERAL: Awake, altered. LUNGS: Clear. CARDIOVASCULAR: Heart sounds are good. ABDOMEN: Soft. laboratory and microbiology Laboratory Tests 04/08/24 14:27 Test 04/08/24 14:27 Range/Units Serum Glucose 146 H 74-106 mg/dL Problem List Syncope. Dementia. Hypertension. Assessment/Plan Continued all current supportive medical care. Amlodipine. Lipitor. Morphine for pain management. GI prophylactics. Additional plan as per the hospital course. Dietary Evaluation Review Comments: 1) Advance pt diet when medically feasible to a 2gm Sodium diet 2) Continue current plan of care Expected Outcomes/Goals: 1) Pt diet to advance 2) F/U in 2-3 days Plan discussed with: Other KERRY VALENTINO MD Apr 11, 2024 13:49
--- NOTE | 2024-04-12 08:21 | DVHPN2 ---
Reviewed: Care Plan, H&P, Labs, Medications, Previous Orders, Radiology Changes from previous H/P or p: No Changes Objective Vitals Vital Signs Date Time Temp Pulse Resp B/P (MAP) Pulse Ox O2 Delivery O2 Flow Rate FiO2 04/11/24 21:14 97.5 73 18 138/80 (99) 97 97.5 04/11/24 20:00 Room Air* 0 21 Intake/Output Intake and Output 04/12/24 07:00 Intake Total 220 ml Balance 220 ml Intake Oral 220 ml # Voids 8 # Bowel Movements 1 Medications Current Medications Medications Dose Ordered Sig/Victorina Route Start Time Stop Time Status Last Admin Dose Admin Nitroglycerin 0.4 mg Q5MINP PRN SL 04/08/24 22:00 Morphine Sulfate 2 mg Q30M PRN IV 04/08/24 22:00 Amlodipine Besylate 5 mg DAILY PO 04/09/24 10:00 04/11/24 12:43 5 MG Donepezil HCl 10 mg HS PO 04/08/24 22:00 04/08/24 22:20 10 MG Memantine 10 mg DAILY PO 04/09/24 10:00 04/11/24 12:42 10 MG Pantoprazole Sodium 40 mg DAILY@0600 PO 04/09/24 06:00 Atorvastatin Calcium 20 mg HS PO 04/08/24 22:00 Temazepam 15 mg HSPRN PRN PO 04/08/24 22:00 Haloperidol Lactate 2.5 mg Q4HPRN PRN IM 04/09/24 11:15 04/11/24 12:45 2.5 MG Quetiapine Fumarate 25 mg BID PO 04/11/24 10:00 04/11/24 12:42 25 MG Laboratory Results Laboratory Tests 04/08/24 14:27 Urinalysis Test 04/08/24 16:54 Urine Color Yellow (Yellow) Urine Clarity Turbid (Clear) H Urine pH 6.0 (5.0-9.0) Urine Specific [place] 1.028 (1.001-1.035) Urine Protein 1+ (Negative) H Urine Ketones Negative (Negative) Urine Blood Negative /uL (Negative) Urine Nitrite Negative (Negative) Urine Bilirubin Negative (Negative) Urine Urobilinogen Normal mg/dL (Negative) Urine Leukocyte Esterase Negative /uL (Negative) Urine RBC 3 /hpf (0 - 4) Urine WBC 2 /hpf (0 - 5) Urine Squamous Epithelial Cells Mod /hpf (<5) Urine Bacteria None seen /hpf (None Seen) Urine Hyaline Casts Mod /lpf (0 - 2) Urine Mucus Few (None Seen) Urine Glucose Trace mg/dL (Normal) Labs and/or images reviewed: Labs reviewed by me, Image(s) reviewed by me Assessment/Plan Assessment/Plan Syncope, rule out orthostatic hypotension, tachy-estefany arrhythmias, TIA. Cardiology consult by Dr. Marquez appreciated, echo 55 % ejection fraction, Neurology consult by Dr. Benavides appreciated, EEG pending, placed on Seroquel and Haldol p.r.n. daughter was advised to follow up with her neurologist Dr. Sukumar Marquez for eeg report Possible TIA, patient's neurologist Dr. Sukumar Marquez Dementia: Namenda Aricept History of hypertension blood pressure normal patient's daughter wants her to take off of BP meds Advanced care planning time [address] head negative Carotid ultrasound negative Echo 55 % ejection fraction Physical therapy ordered Patient is full code Time Spent 45 minutes Daughter Kavya [phone] at bedside Plan discussed with: Patient My Orders Orders - DEJON WILDER MD Procedure Category Date Status Time Pt Request For Service PT 04/11/24 Logged 09:19 Regular Diet DIET 04/11/24 Transmitted Lunch Date of Service: Apr 12, 2024 Billing Provider: DEJON WILDER MD Common Visit Codes: [id number] INP/OBS CARE(HIGH) DEJON WILDER MD Apr 12, 2024 08:21
[2024-04-12] MEDS ORDERED: ZOLP10TA PO (08:23)
[2024-04-12] MEDS ORDERED: QUET50TA PO (08:23)
--- NOTE | 2024-04-12 08:27 | DVHDS2 ---
Discharge Summary Date of Admission Apr 08, 2024 at 21:47 Date of Discharge: Apr 12, 2024 Admitting Diagnosis Syncope Wounds: None Labs/Diagnostic Data: Laboratory Results Test 04/09/24 14:00 04/08/24 16:54 04/08/24 14:27 Vitamin B12 Level 443 pg/mL (211-911) Vitamin D 25-Hydroxy 90.9 ng/mL (30.0-100) Folic Acid 12.14 ng/mL (>5.38) Thyroid Stimulating Hormone (TSH) 1.16 uIU/mL (0.55-4.78) Plasma/Serum Blood Alcohol 4.3 mg/dL (<10) Urine Color Yellow (Yellow) Urine Clarity Turbid (Clear) Urine pH 6.0 (5.0-9.0) Urine Specific [place] 1.028 (1.001-1.035) Urine Protein 1+ (Negative) Urine Ketones Negative (Negative) Urine Blood Negative /uL (Negative) Urine Nitrite Negative (Negative) Urine Bilirubin Negative (Negative) Urine Urobilinogen Normal mg/dL (Negative) Urine Leukocyte Esterase Negative /uL (Negative) Urine RBC 3 /hpf (0 - 4) Urine WBC 2 /hpf (0 - 5) Urine Squamous Epithelial Cells Mod /hpf (<5) Urine Bacteria None seen /hpf (None Seen) Urine Hyaline Casts Mod /lpf (0 - 2) Urine Mucus Few (None Seen) Urine Glucose Trace mg/dL (Normal) White Blood Count 4.6 10^3/uL (4.4-10.8) Red Blood Count 4.95 10^6/uL (4.0-5.20) Hemoglobin 14.9 g/dL (12.2-16.2) Hematocrit 45.3 % (36.0-46.0) Mean Corpuscular Volume 91.5 fL (80.0-100.0) Mean Corpuscular Hemoglobin 30.1 pg (28.0-32.0) Mean Corpuscular Hemoglobin Concent 32.9 g/dL (32.0-36.0) Red Cell Distribution Width 14.4 % (11.8-14.3) Platelet Count 140 10^3/uL (140-450) Mean Platelet Volume 8.9 fL (6.9-10.8) Neutrophils (%) (Auto) 57.1 % (37.0-80.0) Lymphocytes (%) (Auto) 31.1 % (10.0-50.0) Monocytes (%) (Auto) 7.6 % (0.0-12.0) Eosinophils (%) (Auto) 3.4 % (0.0-7.0) Basophils (%) (Auto) 0.8 % (0.0-2.0) Neutrophils # (Auto) 2.6 10 ^3/uL (1.6-8.6) Lymphocytes # (Auto) 1.4 10 ^3/uL (0.4-5.4) Monocytes # (Auto) 0.3 10 ^3/uL (0-1.3) Eosinophils # (Auto) 0.2 10 ^3/uL (0-0.8) Basophils # (Auto) 0 10 ^3/uL (0-0.2) Nucleated Red Blood Cells 0.1 % Sodium Level 141 mmol/L (136-145) Potassium Level 4.2 mmol/L (3.5-5.1) Chloride Level 106 mmol/L (98-107) Carbon Dioxide Level 29 mmol/L (20-31) Anion Gap 6 (5-15) Blood Urea Nitrogen 14 mg/dL (9-23) Creatinine 1.11 mg/dL (0.550-1.02) Glomerular Filtration Rate Calc 51 mL/min (>90) BUN/Creatinine Ratio 12.6 (10.0-20.0) Serum Glucose 146 mg/dL (74-106) Calcium Level 10.0 mg/dL (8.7-10.4) Troponin I High Sensitivity < 3 ng/L (</=34) Other Laboratory Tests 04/08/24 14:27 Brief Hx & Hospital Course: 79-year-old female with a history of dementia hypertension burden by family for syncopal episode found to have orthostatic hypotension and possible tachybrady arrhythmias cardiology consult by Dr. Marquez echo 55 percent ejection fraction neurology consult by Dr. Benavides CT head was negative EEG pending patient was placed by Dr. Benavides on Seroquel. Her old medications Namenda and Aricept continued for dementia. Carotid ultrasound negative the daughter at the bedside at the time of discharge patient found sitting in the bed eating breakfast without any discomfort vital signs are stable being discharged home. The plan is acceptable to the daughter. EEG report pending at the time of discharge. the daughter was advised to follow up with the patient's neurologist Dr. Sukumar Marquez for the EEG report Consults/Reason for consult Neurology Dr. Benavides Operations or Procedures CT head Carotid ultrasound Condition at Discharge: Fair Final Diagnosis/Problems List Syncope, rule out orthostatic hypotension, tachy-estefany arrhythmias, TIA. Cardiology consult by Dr. Marquez appreciated, echo 55 % ejection fraction, Neurology consult by Dr. Benavides appreciated, EEG pending, placed on Seroquel and Haldol p.r.n. daughter was advised to follow up with her neurologist Dr. Sukumar Marquez for eeg report Possible TIA, patient's neurologist Dr. Sukumar Marquez Dementia: Namenda Aricept History of hypertension blood pressure normal patient's daughter wants her to take off of BP meds Advanced care planning time [address] head negative Carotid ultrasound negative Echo 55 % ejection fraction Discharge Disposition: Home Discharge Instruct/Medications Diet: Regular Activity: Light activity Follow Up/Referral: Follow up with the primary Dr in one week Follow up with your neurologist Dr. Sukumar Marquez in one week for the EEG report Resume all previous home medications Medications: Ambien Chrisoquel Transmitted to pharmacy 35 (Time taken for discharge summary 35 minutes) Discharge Statement: "Patient was advised to return to the ER or call 911 if any headaches, dizziness, shortness of breath, chest pain, abdominal pain, bleeding, fevers, or worsening of medical condition. Patient was counseled about treatment plan, medications, possible side effects, patientverbalized understanding. All questions were answered to the best of my ability. This discharge took greater then 30 minutes in planning, reviewing documentation, counseling the patient, and discussing with other team members." ASSESSMENT ASSESSMENT Hospital Course Uneventful Assessment Syncope, rule out orthostatic hypotension, tachy-estefany arrhythmias, TIA. Cardiology consult by Dr. Marquez appreciated, echo 55 % ejection fraction, Neurology consult by Dr. Benavides appreciated, EEG pending, placed on Seroquel and Haldol p.r.n. daughter was advised to follow up with her neurologist Dr. Sukumar Marquez for eeg report Possible TIA, patient's neurologist Dr. Sukumar Marquez Dementia: Namenda Aricept History of hypertension blood pressure normal patient's daughter wants her to take off of BP meds Advanced care planning time [address] head negative Carotid ultrasound negative Echo 55 % ejection fraction Date of Service: Apr 12, 2024 Billing Provider: DEJON WILDER MD Common Visit Codes: 12270-WPO/OBS DISCH DAY >30min DEJON WILDER MD Apr 12, 2024 08:27
[2024-04-12 08:30] VITALS: PULSE 61
[2024-04-12 09:00] VITALS: BP 125/68; PULSE 88; RESP 18; TEMP 97.4; O2SAT 94
--- NOTE | 2024-04-12 18:09 | DVHPN2 ---
Progress Note - Dictate Date Seen: Apr 12, 2024 Medical Necessity Reason Pt with a Central, PICC or Fol: No Subjective Patient was seen and evaluated in follow up. Patient has no new complaints at this time. Patient denies any cardiac symptoms. Patient is cardiac stable for discharge. vital signs Vital Sign Date Time Temp Pulse Resp B/P (MAP) Pulse Ox O2 Delivery O2 Flow Rate FiO2 04/12/24 09:57 125/68 04/12/24 09:00 97.4 88 18 94 97.4 04/11/24 20:00 Room Air* 0 21 Total Intake and Output 04/11/24 04/11/24 04/12/24 15:00 23:00 07:00 Intake Total 120 ml 100 ml Balance 120 ml 100 ml medications Current Medications Medications Dose Ordered Sig/Victorina Route Start Time Stop Time Status Last Admin Dose Admin Nitroglycerin 0.4 mg Q5MINP PRN SL 04/08/24 22:00 Morphine Sulfate 2 mg Q30M PRN IV 04/08/24 22:00 Amlodipine Besylate 5 mg DAILY PO 04/09/24 10:00 04/12/24 09:57 5 MG Donepezil HCl 10 mg HS PO 04/08/24 22:00 04/08/24 22:20 10 MG Memantine 10 mg DAILY PO 04/09/24 10:00 04/12/24 09:52 10 MG Pantoprazole Sodium 40 mg DAILY@0600 PO 04/09/24 06:00 Atorvastatin Calcium 20 mg HS PO 04/08/24 22:00 Temazepam 15 mg HSPRN PRN PO 04/08/24 22:00 Haloperidol Lactate 2.5 mg Q4HPRN PRN IM 04/09/24 11:15 04/11/24 12:45 2.5 MG Quetiapine Fumarate 25 mg BID PO 04/11/24 10:00 04/12/24 09:51 25 MG objective GENERAL: Awake, altered. LUNGS: Clear. CARDIOVASCULAR: Heart sounds are good. ABDOMEN: Soft. laboratory and microbiology Laboratory Tests 04/08/24 14:27 Test 04/08/24 14:27 Range/Units Serum Glucose 146 H 74-106 mg/dL Problem List Syncope. Dementia. Hypertension. Assessment/Plan Continued all current supportive medical care. Amlodipine. Lipitor. Morphine for pain management. GI prophylactics. Additional plan as per the hospital course. Dietary Evaluation Review Comments: 1) Advance pt diet when medically feasible to a 2gm Sodium diet 2) Continue current plan of care Expected Outcomes/Goals: 1) Pt diet to advance 2) F/U in 2-3 days Plan discussed with: KERRY Barry MD Apr 12, 2024 11:46
--- NOTE | 2024-04-12 20:19 | DVHEEG2 ---
Neurology EEG Procedural Note Procedural Note EXAM DATE: 04/11/2024 REFERRING DOCTOR: Dr. Yarbrough TECHNIQUE: Eighteen channels of EEG, 2 channels of EOG, and 1 channel of EKG were recorded using the [employer] 10/20 system. CLINICAL DATA: The patient was referred for an EEG evaluation for the evidence of seizure disorder. MEDICATIONS: See chart BACKGROUND ACTIVITY: The record showed low-amplitude theta, with small amount of delta activity over both hemispheres. ACTIVATION: Hyperventilation: Not done Photic Stimulation: Not done Sleep: Not seen IMPRESSION: This is a mildly to moderately abnormal EEG. This EEG seen in mild to moderate cerebral dysfunction due to metabolic/hypoxic encephalopathy or medication effect, please correlate clinically The EKG channel showed a regular heart rate of 60/[place] [address] SELAM YARBROUGH MD Apr 12, 2024 20:19
== END 2024-04-12 13:40 | disposition home or self-care (01) | DRG 312 ==
LOC: EDBD 14:05 → ER 14:05 → OVERFLOW 21:47 → CENTRAL 04-09 22:06 → TELE-CENTR 04-10 18:10
PROVIDERS: ADMIT Family Medicine; ATTEND Family Medicine
DX: I95.1 Orthostatic hypotension (principal); G45.9 Transient cerebral ischemic attack, unspecified; F02.82 Dementia in other diseases classified elsewhere, unspecified severity, with psychotic disturbance; G30.9 Alzheimer's disease, unspecified; I10 Essential (primary) hypertension; E78.5 Hyperlipidemia, unspecified; I25.10 Atherosclerotic heart disease of native coronary artery without angina pectoris; J44.9 Chronic obstructive pulmonary disease, unspecified; R00.0 Tachycardia, unspecified; E11.9 Type 2 diabetes mellitus without complications; Z79.899 Other long term (current) drug therapy; I25.2 Old myocardial infarction; Z88.6 Allergy status to analgesic agent; Z88.1 Allergy status to other antibiotic agents; Z86.73 Personal history of transient ischemic attack (TIA), and cerebral infarction without residual deficits; Z83.3 Family history of diabetes mellitus; Z82.49 Family history of ischemic heart disease and other diseases of the circulatory system; Z80.3 Family history of malignant neoplasm of breast; Z95.0 Presence of cardiac pacemaker
CPT/HCPCS: 36415; 70450; 71045; 80048; 80320; 81001; 82306; 82607; 82746; 84443; 84484; 85025; 93005; 93306; 93886; 95819; 97163; G0378